=== PATIENT | male | born 1940 | race Caucasian/White ===

== ENCOUNTER → 2017-05-20 | Outpatient (CLI) | payer MEDICARE, OTHER | LOC: SP 08:29 | PROVIDERS: ATTEND Nurse Practitioner Family | DX: L97.212 Non-pressure chronic ulcer of right calf with fat layer exposed (principal) | CPT/HCPCS: 93925; 93970 ==

== ENCOUNTER 2017-05-26 14:13 | Inpatient (IN) | payer MEDICARE, OTHER ==
[2017-05-26] MEDS ORDERED: NORMAL SALINE 1000 ML 1,000 ML IV ONE (15:02)
--- NOTE | 2017-05-26 15:04 | ER Document Report ---
ED General - General Mode of Arrival: Ambulatory Information source: Patient TRAVEL OUTSIDE OF THE [place] IN LAST 30 DAYS: No - HPI Onset: Just prior to arrival Recently seen / treated by doctor: Yes <MALA RODRIGUEZ - Last Filed: 05/26/17 16:36> <BLANCA GRACE - Last Filed: 05/26/17 21:20> - General Stated Complaint: WEAKNESS Time Seen by Provider: 05/26/17 14:55 Notes: Patient is a 76 year old male that presents to the emergency department today with complaints of generalized weakness. Patient was sent in from wound care secondary to his hypotension. Patient states he has new right leg numbness and old right leg numbness. Patient denies any abdominal pain, congestion, UTI symptoms, or fevers. (MALA RODRIGUEZ) - Related Data Allergies/Adverse Reactions: No Known Allergies Allergy (Verified 12/01/13 04:07) Home Medications: Current Home Medications Acetaminophen [Tylenol Extra Strength 500 mg Tablet] 1 tab PO BIDP PRN 05/26/17 [History] Aspirin [Aspirin EC] 81 mg PO DAILY 05/26/17 [History] Atorvastatin Calcium [Lipitor 40 mg Tablet] 40 mg PO QHS 05/26/17 [History] Candesartan Cilexetil [Atacand] 4 mg PO DAILY 05/26/17 [History] Dabigatran Etexilate Mesylate [Pradaxa 150 mg Capsule] 150 mg PO Q12 05/26/17 [ History] Finasteride [Proscar 5 mg Tablet] 5 mg PO DAILY 05/26/17 [History] Fluticasone Propionate [Flonase Nasal [place] 50 Mcg/[place] 16 gm] 1 spray NASL DAILY 05/26/17 [History] Insulin Glargine,Hum.rec.anlog [Lantus Solostar] 25 unit SQ QHS 05/26/17 [ History] Magnesium Oxide [Mag-Ox 400 mg Tablet] 400 mg PO QHS 05/26/17 [History] Metformin HCl [Glucophage] 1,000 mg PO BIDBS 05/26/17 [History] Metoprolol Succinate [Toprol Xl 25 mg Tab.sr] 25 mg PO DAILY 05/26/17 [History] Multivitamin [Tab-A-Ariel] 1 each PO DAILY 05/26/17 [History] Nitroglycerin [Nitrostat] 0.4 mg SL Q5MP PRN 05/26/17 [History] Potassium Chloride [K-Tab ER] 20 meq PO BID 05/26/17 [History] Silver Sulfadiazine [Silvadene 1% Cream 400 gm] 1 applic TP BID 05/26/17 [ History] Tamsulosin HCl [Flomax 0.4 mg Cap.sr] 0.4 mg PO BID 05/26/17 [History] Torsemide [Demadex 20 mg Tablet] 40 mg PO BID 05/26/17 [History] Past Medical History - General Information source: Patient - Social History Smoking Status: Never Smoker Cigarette use (# per day): No Frequency of alcohol use: None Drug Abuse: None Lives with: Family Family History: Reviewed & Not Pertinent, Arthritis, CAD, CVA, DM, Hypertension - Past Medical History Cardiac Medical History: Reports: Hx Atrial Fibrillation, Hx Coronary Artery Disease, Hx Hypercholesterolemia, Hx Hypertension Pulmonary Medical History: Reports: Hx COPD, Hx Sleep Apnea Endocrine Medical History: Reports: Hx Diabetes Mellitus Type 1, Hx Diabetes Mellitus Type 2 Musculoskeltal Medical History: Reports Hx Arthritis Past Surgical History: Reports: Hx Cardiac Catheterization, Hx Cardiac Surgery - stents, Hx Coronary Stent - Immunizations Immunizations up to date: Yes Hx Diphtheria, Pertussis, Tetanus Vaccination: Yes Hx Pneumococcal Vaccination: 02/04/12 <MALA RODRIGUEZ - Last Filed: 05/26/17 16:36> Review of Systems - Review of Systems Constitutional: See HPI, Weakness. denies: Fever EENT: denies: Nose congestion Cardiovascular: No symptoms reported Respiratory: No symptoms reported Gastrointestinal: denies: Abdominal pain Genitourinary: No symptoms reported Male Genitourinary: No symptoms reported Musculoskeletal: No symptoms reported Skin: No symptoms reported Hematologic/Lymphatic: No symptoms reported Neurological/Psychological: See HPI, Numbness - right leg which is new, right arm which is chronic -: Yes All other systems reviewed and negative <MALA RODRIGUEZ - Last Filed: 05/26/17 16:36> Physical Exam - Vital signs Interpretation: Hypotensive - General General appearance: Alert In distress: Mild - HEENT Mucous membranes: Dry - Respiratory Respiratory status: No respiratory distress Chest status: Nontender Breath sounds: Normal - Cardiovascular Rhythm: Regular - Abdominal Inspection: Normal Tenderness: Nontender - Back Back: Normal - Extremities General upper extremity: Normal inspection, Normal ROM General lower extremity: Edema - bl, Normal ROM Calf: Other - Patient with bilateral vascular insufficiency and peripheral skin changes bilaterally. Patient has bandage on right leg. Foot and calf are wet. Open ulcer on the lateral and posterior aspect of the right lower extremity over the calf. Patient does not have any evidence for infection or redness. Good granulation tissue. <BLANCA GRACE - Last Filed: 05/26/17 21:20> - Vital signs Vitals: Temp Pulse Pulse Ox 98.4 F 87 85 L 05/26/17 15:14 05/26/17 15:14 05/26/17 15:14 Course - Laboratory Result Diagrams: 05/26/17 15:30 05/26/17 15:30 <MALA RODRIGUEZ - Last Filed: 05/26/17 16:36> - Laboratory Result Diagrams: 05/26/17 15:30 05/26/17 19:21 - Diagnostic Test Radiology reviewed: Reports reviewed - EKG Interpretation by Pa EKG shows normal: Sinus rhythm Rate: Normal Rhythm: NSR - Consults Guero Time consulted: 17:45 Consulted provider: will see as inpatient <BLANCA GRACE - Last Filed: 05/26/17 21:20> - Re-evaluation Re-evalutation: 05/26/17 Patient is a 76-year-old male who was sent in by the wound clinic because the patient was feeling weak. Patient's initial blood pressure for EMS was 80s over 40s. Patient denies any fever, cough, nausea, vomiting, abdominal pain, dysuria. Patient states that his wound does not look any different than it has. Denies any pain or redness in his leg. Patient was found to be in acute renal failure with hyperkalemia. Patient likely is in the state due to dehydration. Patient has had 200 cc of urine output. No evidence for infection. Patient is responding well to fluids. Discussed with Dr. Jack from nephrology and patient will be admitted to the hospital and fluid resuscitated at this time. Dialysis beds are available, although I do not think the patient will need this at this time. Patient's leg appears well. No evidence for infection. Stable at time of admission to the IM. Of note, documentation that the patient's oxygen saturation was 85% was incorrect. Patient's oxygen saturations were in the high 90s while in the emergency department. (BLANCA GRACE) - Vital Signs Vital signs: Temp Pulse Resp BP Pulse Ox 98.4 F 68 10 L 125/51 L 99 05/26/17 15:14 05/26/17 15:32 05/26/17 19:14 05/26/17 19:14 05/26/17 19:14 - Laboratory Laboratory results interpreted by me: 05/26/17 05/26/17 05/26/17 15:30 15:30 15:30 RBC 2.77 L Hgb 8.6 L Hct 25.6 L RDW 17.2 H PT 18.3 H Sodium 134.1 L Potassium 6.2 H* BUN 70 H Creatinine 2.16 H Est GFR ( Amer) 36 L Est GFR (Non-Af Amer) 30 L Alkaline Phosphatase 215 H Creatine Kinase Albumin 3.2 L Urine Ascorbic Acid 05/26/17 05/26/17 15:30 17:35 RBC Hgb Hct RDW PT Sodium Potassium BUN Creatinine Est GFR ( Amer) Est GFR (Non-Af Amer) Alkaline Phosphatase Creatine Kinase 49 L Albumin Urine Ascorbic Acid 40 H Critical Care Note - Critical Care Note Total time excluding time spent on procedures (mins): 90 - Evaluation and management of hypotension, hyperkalemia, multiple re-evaluations, consultation with nephrology, admission of admission, multiple re-evaluations, counseling of patient <BLANCA GRACE - Last Filed: 05/26/17 21:20> Discharge <MALA RODRIGUEZ - Last Filed: 05/26/17 16:36> - Discharge Admitting Provider: Hospitalist - [facility] Unit Admitted: IMCU <BLANCA GRACE - Last Filed: 05/26/17 21:20> - Discharge Clinical Impression: Weakness, Hyperkalemia Hypotension Qualifiers: Hypotension type: unspecified hypotension type Qualified Code(s): I95.9 - Hypotension, unspecified ARF (acute renal failure) Qualifiers: Acute renal failure type: unspecified Qualified Code(s): N17.9 - Acute kidney failure, unspecified Condition: Stable Disposition: HOME, SELF-CARE Scribe Attestation: 05/26/17 21:19 I personally performed the services described in the documentation, reviewed and edited the documentation which was dictated to the scribe in my presence, and it accurately records my words and actions. (BLANCA GRACE) Scribe Documentation - Scribe Written by Scribe:: J Carlos Quiroz, 05/26/2017 1455 acting as scribe for :: Rodney <MALA RODRIGUEZ - Last Filed: 05/26/17 16:36>
[2017-05-26 15:51] LABS: ABSOLUTE EOSINOPHILS # (AUTO) 0.1 10^3/uL (0.0-0.6); ABSOLUTE LYMPHOCYTES (AUTO) 1.5 10^3/uL (0.5-4.7); ABSOLUTE MONOCYTES (AUTO) 0.9 10^3/uL (0.1-1.4); ABSOLUTE NEUT (AUTO) 7.5 10^3/uL (1.7-8.2); BASOPHILS % (AUTO) 0.2 % (0-2); EOSINOPHILS % (AUTO) 1.1 % (0-6); HEMATOCRIT 25.6 % (37.9-51.0); HEMOGLOBIN 8.6 g/dL (13.5-17.0); HGB HCT DIFFERENCE 0.2; LYMPHOCYTES % (AUTO) 14.7 % (13-45); MEAN CORPUSCULAR HGB CONC 33.6 g/dL (32.0-36.0); MEAN CORPUSCULAR VOLUME 92 fl (80-97); MONOCYTES % (AUTO) 8.9 % (3-13); RED BLOOD COUNT 2.77 10^6/uL (4.35-5.55); RED CELL DISTRIBUTION WIDTH 17.2 % (11.5-14.0); SEGMENTED NEUTROPHILS % (AUTO) 75.1 % (42-78)
[2017-05-26 15:53] LABS: VENOUS BLOOD BASE EXCESS 3.7 mmol/L; VENOUS BLOOD HCO3 30.1 mmol/L (20-32); VENOUS BLOOD PCO2 58.9 mmHg (35-63); VENOUS BLOOD PH 7.33 (7.30-7.42)
[2017-05-26 15:56] LABS: PROTHROMBIN TIME 18.3 SEC (11.4-15.4)
--- NOTE | 2017-05-26 16:08 | RADIOLOGY REPORT (SQ) ---
EXAM DESCRIPTION: CHEST SINGLE VIEW COMPLETED DATE/TIME: 05/26/2017 3:59 pm REASON FOR STUDY: hypotension COMPARISON: 12/01/2013 EXAM PARAMETERS: NUMBER OF VIEWS: One view. TECHNIQUE: Single frontal radiographic view of the chest acquired. RADIATION DOSE: NA LIMITATIONS: None. FINDINGS: LUNGS AND PLEURA: No opacities, masses or pneumothorax. No pleural effusion. MEDIASTINUM AND HILAR STRUCTURES: No masses. Contour normal. HEART AND VASCULAR STRUCTURES: Heart size is borderline. There is no evidence of failure. BONES: No acute findings. HARDWARE: None in the chest. OTHER: No other significant finding. IMPRESSION: Borderline cardiomegaly without CHF. TECHNICAL DOCUMENTATION: JOB ID: [id number]
[2017-05-26 16:14] LABS: ALANINE AMINOTRANSFERASE 43 U/L (21-72); ALBUMIN 3.2 g/dL (3.5-5.0); ALKALINE PHOSPHATASE 215 U/L (38-126); ANION GAP 8 (5-19); ASPARTATE AMINO TRANSFERASE 38 U/L (17-59); BILIRUBIN,DIRECT 0.2 mg/dL (0.0-0.4); BILIRUBIN,TOTAL 0.2 mg/dL (0.2-1.3); BLOOD UREA NITROGEN 70 mg/dL (7-20); CALCIUM 8.6 mg/dL (8.4-10.2); CARBON DIOXIDE 28 mmol/L (22-30); CHLORIDE 98 mmol/L (98-107); CREATININE RESULT 2.16 mg/dL (0.52-1.25); GLUCOSE 95 mg/dL (75-110); SODIUM 134.1 mmol/L (137-145); TOTAL PROTEIN 6.8 g/dL (6.3-8.2)
[2017-05-26 16:19] LABS: POTASSIUM 6.2 mmol/L (3.6-5.0)
[2017-05-26] MEDS ORDERED: DEXTROSE 50%-WATER 25 GM/50 ML DISP.SYRIN IV ONE (16:21)
[2017-05-26] MEDS ORDERED: INSULIN REG, HUMAN 100 UNIT/ML 3 ML VIAL (PYX) IV ONE (16:21)
[2017-05-26 17:55] LABS: APPEARANCE,URINE SLIGHTLY-CLOUDY; BILIRUBIN,URINE NEGATIVE (NEGATIVE); GLUCOSE, URINE NEGATIVE (NEGATIVE); KETONES,URINE NEGATIVE (NEGATIVE); LEUKOCYTE ESTERASE,URINE NEGATIVE (NEGATIVE); NITRITE,URINE NEGATIVE (NEGATIVE); PROTEIN,URINE NEGATIVE (NEGATIVE); URINE SPECIFIC GRAVITY 1.015; UROBILINOGEN,URINE NEGATIVE mg/dL (<2.0)
[2017-05-26] MEDS ORDERED: ONDANSETRON HCL INJ/PF 4 MG/2 ML SDV IV PRN (18:28)
[2017-05-26] MEDS ORDERED: MAGNESIUM HYDROXIDE SUSP 30 ML UDCUP PO PRN (18:28)
[2017-05-26] MEDS ORDERED: INSULIN LISPRO 100 UNIT/ML 3 ML VIAL SUBCUT PRN (18:40)
[2017-05-26] MEDS ORDERED: DEXTROSE 50%-WATER 25 GM/50 ML DISP.SYRIN IV PRN ×2 (18:40)
[2017-05-26] MEDS ORDERED: GLUCAGON,HUMAN RECOMB 1 MG INJ IM PRN (18:40)
[2017-05-26] MEDS ORDERED: DEXTROSE 40% GEL 15 GM TUBE PO PRN ×2 (18:40)
--- NOTE | 2017-05-26 19:03 | PDOC H&P ---
History of Present Illness Admission Date/PCP: 05/26/17 18:21 Patient complains of: legs gave away History of Present Illness: GUME SUGGS is a 76 year old male with multiple medical problems presented to the emergency department after experiencing profound weakness today. He has chronic lower extremity edema. As result, he has skin discoloration on both lower legs as well as ulcerations on his right calf. At his wound clinic appointment today, but was unable to get out of the truck because he was so weak. He did not report dizziness. He did not lose consciousness. He stated that his legs just felt weak. He does not report any change in medications. His appetite has been good. He did not report fevers, chills, nausea, or vomiting. He has not been short of breath. He has not had chest pain. Past Medical History Cardiac Medical History: Reports: Atrial Fibrillation, Coronary Artery Disease, Hyperlipidema, Hypertension Denies: Congestive Heart Failure, Myocardial Infarction Pulmonary Medical History: Reports: Chronic Obstructive Pulmonary Disease (COPD) , Sleep Apnea Denies: Asthma, Tuberculosis Neurological Medical History: Denies: Seizures Endocrine Medical History: Reports: Diabetes Mellitus Type 2, Obesity GI Medical History: Denies: Hepatitis, Hiatal Hernia Musculoskeltal Medical History: Reports: Arthritis Psychiatric Medical History: Denies: Depression Hematology: Denies: Anemia, Sickle Cell Disease Past Surgical History Past Surgical History: Reports: Cardiac Catheterization, Coronary Stent Denies: Pacemaker Social History Lives with: Family Smoking Status: Never Smoker Frequency of Alcohol Use: None Hx Recreational Drug Use: No Hx Prescription Drug Abuse: No - Advance Directive Resuscitation Status: Full Code Family History Family History: Reviewed & Not Pertinent, Arthritis, CAD, CVA, DM, Hypertension Parental Family History Reviewed: Yes Children Family History Reviewed: Yes Sibling(s) Family History Reviewed.: Yes Medication/Allergy Home Medications: Aspirin [Aspirin 81 mg Chewable Tablet] 81 mg PO DAILY 12/01/13 Dabigatran Etexilate Mesylate [Pradaxa 75 Mg Capsule] 75 mg PO BID 12/01/13 Finasteride 5 mg PO DAILY 12/01/13 Furosemide [Lasix 40 mg Tablet] 40 mg PO QAM 12/01/13 Magnesium Oxide [Magnesium] 400 mg PO QHS 12/01/13 Metformin HCl [Glucophage] 500 mg PO BID 12/01/13 Metoprolol Succinate [Toprol Xl] 25 mg PO DAILY 12/01/13 Multivitamin [Multi Vitamin Daily] 1 each PO DAILY 12/01/13 Nitroglycerin 0.4 mg SL DAILY PRN 12/01/13 Potassium Chloride [Klor-Con] 20 meq PO DAILY 12/01/13 Prasugrel Hydrochloride [Effient] 10 mg PO DAILY 12/01/13 Simvastatin 20 mg PO QHS 12/01/13 Tamsulosin HCl [Flomax 0.4 mg Cap.sr] 0.8 mg PO DAILY 12/01/13 Allergies/Adverse Reactions: No Known Allergies Allergy (Verified 12/01/13 04:07) Review of Systems Constitutional: PRESENT: weakness. ABSENT: anorexia, fatigue, fever(s) Cardiovascular: PRESENT: edema. ABSENT: chest pain, dyspnea on exertion, orthropnea, palpitations Physical Exam Vital Signs: Temp Pulse Resp BP Pulse Ox 98.4 F 68 21 H 98/39 L 85 L 05/26/17 15:14 05/26/17 15:32 05/26/17 17:41 05/26/17 15:32 05/26/17 15:14 Neck exam: ABSENT: carotid bruit, JVD Extremities exam: PRESENT: +2 edema - Feet and lower legs bilaterally Skin exam: PRESENT: skin tears - Back of right calf, other - Venous stasis changes Results Laboratory Results: Labs- All tests 24 hr 05/26/17 05/26/17 05/26/17 15:30 15:30 15:30 WBC 10.0 RBC 2.77 L Hgb 8.6 L Hct 25.6 L MCV 92 MCH 31.0 MCHC 33.6 RDW 17.2 H Plt Count 382 Seg Neutrophils % 75.1 Lymphocytes % 14.7 Monocytes % 8.9 Eosinophils % 1.1 Basophils % 0.2 Absolute Neutrophils 7.5 Absolute Lymphocytes 1.5 Absolute Monocytes 0.9 Absolute Eosinophils 0.1 Absolute Basophils 0.0 PT 18.3 H INR 1.43 VBG pH VBG pCO2 VBG HCO3 VBG Base Excess Sodium 134.1 L Potassium 6.2 H* Chloride 98 Carbon Dioxide 28 Anion Gap 8 BUN 70 H Creatinine 2.16 H Est GFR ( Amer) 36 L Est GFR (Non-Af Amer) 30 L Glucose 95 Lactic Acid Calcium 8.6 Total Bilirubin 0.2 Direct Bilirubin 0.2 Indirect Bilirubin Not Reportable Neonat Total Bilirubin Not Reportable AST 38 ALT 43 Alkaline Phosphatase 215 H Creatine Kinase CK-MB (CK-2) Troponin I Total Protein 6.8 Albumin 3.2 L Urine Color Urine Appearance Urine pH Ur Specific [place] Urine Protein Urine Glucose (UA) Urine Ketones Urine Blood Urine Nitrite Urine Bilirubin Urine Urobilinogen Ur Leukocyte Esterase Urine WBC (Auto) Urine RBC (Auto) U Hyaline Cast (Auto) Squamous Epi Cells Auto Urine Ascorbic Acid 05/26/17 05/26/17 05/26/17 15:30 15:30 15:30 WBC RBC Hgb Hct MCV MCH MCHC RDW Plt Count Seg Neutrophils % Lymphocytes % Monocytes % Eosinophils % Basophils % Absolute Neutrophils Absolute Lymphocytes Absolute Monocytes Absolute Eosinophils Absolute Basophils PT INR VBG pH 7.33 VBG pCO2 58.9 VBG HCO3 30.1 VBG Base Excess 3.7 Sodium Potassium Chloride Carbon Dioxide Anion Gap BUN Creatinine Est GFR ( Amer) Est GFR (Non-Af Amer) Glucose Lactic Acid 1.0 Calcium Total Bilirubin Direct Bilirubin Indirect Bilirubin Neonat Total Bilirubin AST ALT Alkaline Phosphatase Creatine Kinase CK-MB (CK-2) Troponin I < 0.012 Total Protein Albumin Urine Color Urine Appearance Urine pH Ur Specific [place] Urine Protein Urine Glucose (UA) Urine Ketones Urine Blood Urine Nitrite Urine Bilirubin Urine Urobilinogen Ur Leukocyte Esterase Urine WBC (Auto) Urine RBC (Auto) U Hyaline Cast (Auto) Squamous Epi Cells Auto Urine Ascorbic Acid 05/26/17 05/26/17 05/26/17 15:30 15:30 17:35 WBC RBC Hgb Hct MCV MCH MCHC RDW Plt Count Seg Neutrophils % Lymphocytes % Monocytes % Eosinophils % Basophils % Absolute Neutrophils Absolute Lymphocytes Absolute Monocytes Absolute Eosinophils Absolute Basophils PT INR VBG pH VBG pCO2 VBG HCO3 VBG Base Excess Sodium Potassium Chloride Carbon Dioxide Anion Gap BUN Creatinine Est GFR ( Amer) Est GFR (Non-Af Amer) Glucose Lactic Acid Calcium Total Bilirubin Direct Bilirubin Indirect Bilirubin Neonat Total Bilirubin AST ALT Alkaline Phosphatase Creatine Kinase 49 L CK-MB (CK-2) 0.95 Troponin I Total Protein Albumin Urine Color YELLOW Urine Appearance SLIGHTLY-CLOUDY Urine pH 5.0 Ur Specific [place] 1.015 Urine Protein NEGATIVE Urine Glucose (UA) NEGATIVE Urine Ketones NEGATIVE Urine Blood NEGATIVE Urine Nitrite NEGATIVE Urine Bilirubin NEGATIVE Urine Urobilinogen NEGATIVE Ur Leukocyte Esterase NEGATIVE Urine WBC (Auto) 1 Urine RBC (Auto) 1 U Hyaline Cast (Auto) 1 Squamous Epi Cells Auto 1 Urine Ascorbic Acid 40 H Impressions: Chest X-Ray 05/26/17 15:02 IMPRESSION: Borderline cardiomegaly without CHF. Assessment & Plan - Diagnosis (1) ARF (acute renal failure) Qualifiers: Acute renal failure type: unspecified Qualified Code(s): N17.9 - Acute kidney failure, unspecified Is this a current diagnosis for this admission?: Yes Plan: Not sure what the etiology is. He appears to be "dry". He is reportedly compliant with his medications. Renal ultrasound has been ordered. He has a Barcenas catheter that was placed in the ED. He is making adequate urine. He already received the bolus of normal saline 1000 cc. I will hold his antihypertensive medications, including Flomax. I will hold Glucophage as well. A BMP ordered for the a.m. (2) Hypotension Qualifiers: Hypotension type: unspecified hypotension type Qualified Code(s): I95.9 - Hypotension, unspecified Is this a current diagnosis for this admission?: Yes Plan: Probably related to medications. He is not acutely ill. He certainly does not present with any symptoms suggestive of an acute illness. He did not report chest pain. He is not short of breath outside of his usual. Continue IV fluids. Hold BP medications. Resume if needed. (3) Hyperkalemia Is this a current diagnosis for this admission?: Yes Plan: Later to acute renal failure. Furthermore, he was taking potassium supplements at home. I will hold those for now. Recheck BMP in a.m. (4) History of chronic atrial fibrillation Is this a current diagnosis for this admission?: Yes Plan: Continue Pradaxa (5) CAD (coronary artery disease), [place] coronary artery Qualifiers: [place] vs. transplanted heart: [place] heart Associated angina: without angina Qualified Code(s): I25.10 - Atherosclerotic heart disease of [place] coronary artery without angina pectoris Is this a current diagnosis for this admission?: Yes Plan: Stable. Continue statin, aspirin, and Effient. (6) BPH (benign prostatic hyperplasia) Qualifiers: Lower urinary tract symptom presence: symptoms absent Qualified Code(s): N40.0 - Benign prostatic hyperplasia without lower urinary tract symptoms Is this a current diagnosis for this admission?: Yes Plan: Continue finasteride. Hold Flomax while he is hypotensive. (7) Diabetes mellitus Qualifiers: Diabetes mellitus type: type 2 Diabetes mellitus complication status: without complication Diabetes mellitus dedicated intermodal truck driver insulin use: without dedicated intermodal truck driver use Qualified Code(s): E11.9 - Type 2 diabetes mellitus without complications Is this a current diagnosis for this admission?: Yes Plan: Hold Glucophage for now. I will use insulin sliding scale if needed. (8) Leg wound, right Qualifiers: Encounter type: initial encounter Qualified Code(s): S81.801A - Unspecified open wound, right lower leg, initial encounter Is this a current diagnosis for this admission?: Yes Plan: We will with saline and cover with Silvadene cream twice daily. (9) Hypoxia Is this a current diagnosis for this admission?: Yes Plan: Recently, he states that he uses oxygen at home only on an as-needed basis. I will order 2 L continuous for now. - Time Time Spent: 50 to 70 Minutes Anticipated discharge: Home Within: within 36 hours - Inpatient Certification Based on my medical assessment, after consideration of the patient's comorbidities, presenting symptoms, or acuity I expect that the services needed warrant INPATIENT care.: Yes I certify that my determination is in accordance with my understanding of Medicare's requirements for reasonable and necessary INPATIENT services [42 CFR 412.3e].: Yes Medical Necessity: Need For IV Fluids
--- NOTE | 2017-05-26 19:51 | RADIOLOGY REPORT (SQ) ---
EXAM DESCRIPTION: U/S RETROPERITON (RENAL/AORTA) COMPLETED DATE/TIME: 05/26/2017 7:35 pm REASON FOR STUDY: evaluate for obstruction COMPARISON: None. TECHNIQUE: Dynamic and static grayscale images acquired of the kidneys and bladder and recorded on P ACS. Additional selected color Doppler and spectral images recorded. LIMITATIONS: None. FINDINGS: RIGHT KIDNEY: The right kidney measures 10.1 cm in length. The right collecting system is dilated. There is thinning of the cortex. A large right renal pelvis was noted on CT done in November 2013. This may be chronic. Echogenicity is normal. LEFT KIDNEY: The left kidney measures 12.5 cm in length. No hydronephrosis. Echogenicity is normal . BLADDER: No masses. OTHER FINDINGS: No other significant finding. IMPRESSION: Dilated right collecting system. Similar findings were present on a CT done in November of 2013. This may be chronic for this patient. TECHNICAL DOCUMENTATION: JOB ID: [id number] [employer]- All Rights Reserved
[2017-05-26 20:01] LABS: ANION GAP 8 (5-19); BLOOD UREA NITROGEN 66 mg/dL (7-20); CALCIUM 8.6 mg/dL (8.4-10.2); CARBON DIOXIDE 26 mmol/L (22-30); CHLORIDE 101 mmol/L (98-107); GLUCOSE 102 mg/dL (75-110); POTASSIUM 5.3 mmol/L (3.6-5.0); SODIUM 135.3 mmol/L (137-145)
--- NOTE | 2017-05-26 20:13 | EKG REPORT ---
SEVERITY:- ABNORMAL ECG - SINUS RHYTHM NONSPECIFIC INTRAVENTRICULAR CONDUCTION DELAY : Confirmed by: Cynthia Osborne 26-May-2017 20:11:53
[2017-05-26] MEDS ORDERED: SIMVASTATIN 10 MG TABLET PO SCH (22:00)
[2017-05-26] MEDS ORDERED: (PENDING PHARMACY ID) (Simvastatin [Simvastatin] 20 MG) PO SCH (22:00)
[2017-05-26] MEDS: ATORVASTATIN CALCIUM 40 MG TABLET PO SCH (22:14)
[2017-05-26] MEDS: DABIGATRAN ETEXILATE 150 MG CAPSULE PO SCH (22:15)
[2017-05-26] MEDS: NORMAL SALINE 1000 ML 1,000 ML IV PRN (22:16)
[2017-05-27] MEDS: ACETAMINOPHEN 325 MG TABLET PO PRN ×3 (00:44→12:58)
[2017-05-27 05:52] LABS: HEMATOCRIT 26.6 % (37.9-51.0); HEMOGLOBIN 8.8 g/dL (13.5-17.0); HGB HCT DIFFERENCE -0.2; MEAN CORPUSCULAR HEMOGLOBIN 30.2 pg (27.0-33.4); MEAN CORPUSCULAR HGB CONC 32.8 g/dL (32.0-36.0); MEAN CORPUSCULAR VOLUME 92 fl (80-97); WHITE BLOOD COUNT 9.4 10^3/uL (4.0-10.5)
[2017-05-27 06:11] LABS: ANION GAP 8 (5-19); BLOOD UREA NITROGEN 54 mg/dL (7-20); CALCIUM 8.3 mg/dL (8.4-10.2); CARBON DIOXIDE 25 mmol/L (22-30); CHLORIDE 103 mmol/L (98-107); CREATININE RESULT 1.21 mg/dL (0.52-1.25); GLUCOSE 102 mg/dL (75-110); POTASSIUM 4.9 mmol/L (3.6-5.0); SODIUM 135.6 mmol/L (137-145)
[2017-05-27] MEDS ORDERED: SILVER SULFADIAZINE 1% CREAM 400 GM ONE (06:50)
[2017-05-27] MEDS ORDERED: (PENDING PHARMACY ID) (Acetaminophen [Tylenol Extra Strength 500 Mg Tablet] 1 TAB) PO PRN (08:26)
--- NOTE | 2017-05-27 08:44 | PDOC PROGRESS REPORT ---
Subjective Progress Note for:: 05/27/17 Subjective:: Today, his main concern is discomfort laying in the bed. He is concerned also that he may not be able to walk. He really wants to go home, but is concerned that he may not have the strength to stand/and/or ambulate. He had no problems overnight. Physical Exam Vital Signs: Temp Pulse Resp BP Pulse Ox 97.9 F 69 19 124/51 L 92 05/27/17 07:22 05/27/17 07:22 05/27/17 07:22 05/27/17 07:22 05/27/17 07:22 Intake & Output 05/26/17 05/27/17 05/28/17 06:59 06:59 06:59 Intake Total 1367 Output Total 1800 Balance -433 Weight 131 kg General appearance: PRESENT: no acute distress, cooperative, morbidly obese Head exam: PRESENT: atraumatic, normocephalic Eye exam: PRESENT: EOMI, PERRLA Respiratory exam: PRESENT: clear to auscultation pam. ABSENT: rales, rhonchi, wheezes Cardiovascular exam: PRESENT: RRR. ABSENT: diastolic murmur, rubs, systolic murmur GI/Abdominal exam: PRESENT: normal bowel sounds, soft. ABSENT: distended, guarding, mass, organolmegaly, rebound, tenderness Rectal exam: PRESENT: deferred Extremities exam: PRESENT: +2 edema - Bilateral lower extremities Neurological exam: PRESENT: alert, awake, oriented to person, oriented to place , oriented to time, oriented to situation, CN II-XII grossly intact. ABSENT: motor sensory deficit Psychiatric exam: PRESENT: appropriate affect, normal mood. ABSENT: homicidal ideation, suicidal ideation Skin exam: PRESENT: other - Hyperpigmented skin from proximal shins to ankles/ feet. Ulcerated skin posterior right calf Results Laboratory Results: 05/27/17 05:02 05/27/17 05:02 05/26/17 05/27/17 05/27/17 19:21 05:02 05:02 WBC 9.4 RBC 2.90 L Hgb 8.8 L Hct 26.6 L MCV 92 MCH 30.2 MCHC 32.8 RDW 17.0 H Plt Count 361 Sodium 135.3 L 135.6 L Potassium 5.3 H 4.9 Chloride 101 103 Carbon Dioxide 26 25 Anion Gap 8 8 BUN 66 H 54 H Creatinine 1.60 H 1.21 Est GFR ( Amer) 51 L > 60 Est GFR (Non-Af Amer) 42 L 58 L Glucose 102 102 Calcium 8.6 8.3 L Impressions: Chest X-Ray 05/26/17 15:02 IMPRESSION: Borderline cardiomegaly without CHF. Renal Ultrasound 05/26/17 17:40 IMPRESSION: Dilated right collecting system. Similar findings were present on a CT done in November of 2013. This may be chronic for this patient. Assessment & Plan - Diagnosis (1) ARF (acute renal failure) Qualifiers: Acute renal failure type: unspecified Qualified Code(s): N17.9 - Acute kidney failure, unspecified Is this a current diagnosis for this admission?: Yes Plan: Yesterday I was not sure what the etiology was. He appeared to be "dry". After his medications were reconciled, I found out that he was taking torsemide 40 mg twice a day. He has been taking this for 6 months. He was also taking Atacand. Renal ultrasound showed no acute changes. 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 He has a Barcenas catheter that was placed in the ED. He is making adequate urine. This morning, his creatinine is normal. His blood pressure has also improved. I will continue holding the diuretic and blood pressure medications until his pressure is high enough to tolerate it. (2) Hypotension Qualifiers: Hypotension type: unspecified hypotension type Qualified Code(s): I95.9 - Hypotension, unspecified Is this a current diagnosis for this admission?: Yes Plan: Probably related to medications. Blood pressure has improved today. Continue IV fluids. Hold BP medications. Resume when/if needed. (3) Hyperkalemia Is this a current diagnosis for this admission?: Yes Plan: Resolved (4) History of chronic atrial fibrillation Is this a current diagnosis for this admission?: Yes Plan: Continue Pradaxa (5) CAD (coronary artery disease), [place] coronary artery Qualifiers: [place] vs. transplanted heart: [place] heart Associated angina: without angina Qualified Code(s): I25.10 - Atherosclerotic heart disease of [place] coronary artery without angina pectoris Is this a current diagnosis for this admission?: Yes Plan: Stable. Continue statin, aspirin, and Effient. (6) BPH (benign prostatic hyperplasia) Qualifiers: Lower urinary tract symptom presence: symptoms absent Qualified Code(s): N40.0 - Benign prostatic hyperplasia without lower urinary tract symptoms Is this a current diagnosis for this admission?: Yes Plan: Continue finasteride. Hold Flomax while he is hypotensive. (7) Diabetes mellitus Qualifiers: Diabetes mellitus type: type 2 Diabetes mellitus complication status: without complication Diabetes mellitus skilled nursing insulin use: without intermediate designer use Qualified Code(s): E11.9 - Type 2 diabetes mellitus without complications Is this a current diagnosis for this admission?: Yes Plan: Admission medication reconciliation demonstrated that he was also taking Lantus. I can start him back on Glucophage now his renal failure has resolved. Because his blood sugars are considerably normal, I will still use the sliding scale and not restart long-acting insulin just yet. (8) Leg wound, right Qualifiers: Encounter type: initial encounter Qualified Code(s): S81.801A - Unspecified open wound, right lower leg, initial encounter Is this a current diagnosis for this admission?: Yes Plan: We will with saline and cover with Silvadene cream twice daily. (9) Hypoxia Is this a current diagnosis for this admission?: Yes Plan: Recently, he states that he uses oxygen at home only on an as-needed basis. Continue 2 L continuous for now. - Time Time Spent with patient: 25-34 minutes Anticipated discharge: Home with Homehealth Within: within 24 hours - Inpatient Certification Based on my medical assessment, after consideration of the patient's comorbidities, presenting symptoms, or acuity I expect that the services needed warrant INPATIENT care.: Yes I certify that my determination is in accordance with my understanding of Medicare's requirements for reasonable and necessary INPATIENT services [42 CFR 412.3e].: Yes Medical Necessity: Need For IV Fluids
[2017-05-27] MEDS: METOPROLOL SUCCINATE 25 MG TAB.SR.24H PO SCH (09:44)
[2017-05-27] MEDS: MULTIVITAMIN TABLET PO SCH (09:45)
[2017-05-27] MEDS: FINASTERIDE 5 MG TABLET PO SCH (09:45)
[2017-05-27] MEDS: TAMSULOSIN HCL 0.4 MG CAP.SR.24H PO SCH ×2 (09:45→17:29)
[2017-05-27] MEDS: DABIGATRAN ETEXILATE 150 MG CAPSULE PO SCH ×2 (09:46→21:18)
[2017-05-27] MEDS: ASPIRIN 81 MG TABLET, CHEWABLE PO SCH (09:46)
[2017-05-27] MEDS: NITROGLYCERIN 0.4 MG/TAB 25 TAB/BOTTLE SL PRN (09:49)
[2017-05-27] MEDS ORDERED: DABIGATRAN ETEXILATE 75 MG CAPSULE PO SCH (10:00)
[2017-05-27] MEDS: FLUTICASONE NASAL SPRAY 50 MCG/SPRY 120 SPRAY/16 GM NASL SCH (10:15)
--- NOTE | 2017-05-27 11:13 | Physician Advisory Note ---
Physician Advisor ProgressNote .: [facility] I have reviewed the medical record for this patient. Physician Advisor Statement: Please consider documenting, if you agree: 1. "obesity with BMI 43.9, associated with " [FREDY, hypoxemia, need for bariatric-rated DME, add'l nursing support for transfers/turning,...?] 2. "possible ATN causing ARF, due to systemic hypotension" 3. ? - "chronic hypoxemic respiratory failure, w/underlying COPD & FREDY, using O2 __L at home, w/O2 sat 85% RA initially in ED" [?also w/obesity hypoventilation syndrome?] 4. Status: Medicare pt appropriately came in as Obs, but now appropriate to change to Inpatient status given nicely documented details of need for continued hospital care/monitoring. Thanks! CK
[2017-05-27] MEDS: METFORMIN HCL 500 MG TABLET PO SCH (17:29)
[2017-05-27] MEDS: NORMAL SALINE 1000 ML 1,000 ML IV PRN (21:17)
[2017-05-27] MEDS: ATORVASTATIN CALCIUM 40 MG TABLET PO SCH (21:17)
[2017-05-28] MEDS: NORMAL SALINE 1000 ML 1,000 ML IV PRN (05:40)
[2017-05-28] MEDS: METFORMIN HCL 500 MG TABLET PO SCH ×2 (07:37→17:21)
[2017-05-28] MEDS: FINASTERIDE 5 MG TABLET PO SCH (09:29)
[2017-05-28] MEDS: METOPROLOL SUCCINATE 25 MG TAB.SR.24H PO SCH (09:29)
[2017-05-28] MEDS: DABIGATRAN ETEXILATE 150 MG CAPSULE PO SCH ×2 (09:29→22:12)
[2017-05-28] MEDS: TAMSULOSIN HCL 0.4 MG CAP.SR.24H PO SCH ×2 (09:30→17:21)
[2017-05-28] MEDS: FLUTICASONE NASAL SPRAY 50 MCG/SPRY 120 SPRAY/16 GM NASL SCH (09:30)
[2017-05-28] MEDS: MULTIVITAMIN TABLET PO SCH (09:30)
[2017-05-28] MEDS: ASPIRIN 81 MG TABLET, CHEWABLE PO SCH (09:30)
[2017-05-28] MEDS: ACETAMINOPHEN 325 MG TABLET PO PRN (09:30)
[2017-05-28] MEDS ORDERED: ONDANSETRON HCL INJ/PF 4 MG/2 ML SDV IV PRN (10:00)
[2017-05-28] MEDS ORDERED: MAGNESIUM HYDROXIDE SUSP 30 ML UDCUP PO PRN (10:00)
--- NOTE | 2017-05-28 10:11 | PDOC PROGRESS REPORT ---
Subjective Progress Note for:: 05/28/17 Subjective:: No problems overnight. He is still concerned also that he may not be strong enough for home. He is feeling as if he may be too much for his family to care for. Physical Exam Vital Signs: Temp Pulse Resp BP Pulse Ox 97.6 F 78 20 124/46 L 98 05/28/17 07:50 05/28/17 07:50 05/28/17 07:50 05/28/17 07:50 05/28/17 07:50 Intake & Output 05/27/17 05/28/17 05/29/17 06:59 06:59 06:59 Intake Total 3222 Output Total 1700 Balance 1522 Weight 131 kg General appearance: PRESENT: no acute distress, morbidly obese Head exam: PRESENT: atraumatic, normocephalic Neck exam: ABSENT: JVD Respiratory exam: PRESENT: clear to auscultation pam. ABSENT: rales, rhonchi, wheezes Cardiovascular exam: PRESENT: RRR. ABSENT: diastolic murmur, rubs, systolic murmur GI/Abdominal exam: PRESENT: normal bowel sounds, soft. ABSENT: distended, guarding, mass, organolmegaly, rebound, tenderness Extremities exam: PRESENT: +2 edema Neurological exam: PRESENT: alert, awake, oriented to person, oriented to place , oriented to time, oriented to situation, CN II-XII grossly intact. ABSENT: motor sensory deficit Skin exam: PRESENT: other - hyperpigmented calves. ulceration on posterior right calf Results Laboratory Results: Labs- Entire Visit 05/26/17 05/26/17 05/26/17 15:30 15:30 15:30 WBC 10.0 RBC 2.77 L Hgb 8.6 L Hct 25.6 L MCV 92 MCH 31.0 MCHC 33.6 RDW 17.2 H Plt Count 382 Seg Neutrophils % 75.1 Lymphocytes % 14.7 Monocytes % 8.9 Eosinophils % 1.1 Basophils % 0.2 Absolute Neutrophils 7.5 Absolute Lymphocytes 1.5 Absolute Monocytes 0.9 Absolute Eosinophils 0.1 Absolute Basophils 0.0 PT 18.3 H INR 1.43 VBG pH VBG pCO2 VBG HCO3 VBG Base Excess Sodium 134.1 L Potassium 6.2 H* Chloride 98 Carbon Dioxide 28 Anion Gap 8 BUN 70 H Creatinine 2.16 H Est GFR ( Amer) 36 L Est GFR (Non-Af Amer) 30 L Glucose 95 POC Glucose Lactic Acid Calcium 8.6 Total Bilirubin 0.2 Direct Bilirubin 0.2 Indirect Bilirubin Not Reportable Neonat Total Bilirubin Not Reportable AST 38 ALT 43 Alkaline Phosphatase 215 H Creatine Kinase CK-MB (CK-2) Troponin I Total Protein 6.8 Albumin 3.2 L Urine Color Urine Appearance Urine pH Ur Specific [place] Urine Protein Urine Glucose (UA) Urine Ketones Urine Blood Urine Nitrite Urine Bilirubin Urine Urobilinogen Ur Leukocyte Esterase Urine WBC (Auto) Urine RBC (Auto) U Hyaline Cast (Auto) Squamous Epi Cells Auto Urine Ascorbic Acid Stool for White Cells 05/26/17 05/26/17 05/26/17 15:30 15:30 15:30 WBC RBC Hgb Hct MCV MCH MCHC RDW Plt Count Seg Neutrophils % Lymphocytes % Monocytes % Eosinophils % Basophils % Absolute Neutrophils Absolute Lymphocytes Absolute Monocytes Absolute Eosinophils Absolute Basophils PT INR VBG pH 7.33 VBG pCO2 58.9 VBG HCO3 30.1 VBG Base Excess 3.7 Sodium Potassium Chloride Carbon Dioxide Anion Gap BUN Creatinine Est GFR ( Amer) Est GFR (Non-Af Amer) Glucose POC Glucose Lactic Acid 1.0 Calcium Total Bilirubin Direct Bilirubin Indirect Bilirubin Neonat Total Bilirubin AST ALT Alkaline Phosphatase Creatine Kinase CK-MB (CK-2) Troponin I < 0.012 Total Protein Albumin Urine Color Urine Appearance Urine pH Ur Specific [place] Urine Protein Urine Glucose (UA) Urine Ketones Urine Blood Urine Nitrite Urine Bilirubin Urine Urobilinogen Ur Leukocyte Esterase Urine WBC (Auto) Urine RBC (Auto) U Hyaline Cast (Auto) Squamous Epi Cells Auto Urine Ascorbic Acid Stool for White Cells 05/26/17 05/26/17 05/26/17 15:30 15:30 17:35 WBC RBC Hgb Hct MCV MCH MCHC RDW Plt Count Seg Neutrophils % Lymphocytes % Monocytes % Eosinophils % Basophils % Absolute Neutrophils Absolute Lymphocytes Absolute Monocytes Absolute Eosinophils Absolute Basophils PT INR VBG pH VBG pCO2 VBG HCO3 VBG Base Excess Sodium Potassium Chloride Carbon Dioxide Anion Gap BUN Creatinine Est GFR ( Amer) Est GFR (Non-Af Amer) Glucose POC Glucose Lactic Acid Calcium Total Bilirubin Direct Bilirubin Indirect Bilirubin Neonat Total Bilirubin AST ALT Alkaline Phosphatase Creatine Kinase 49 L CK-MB (CK-2) 0.95 Troponin I Total Protein Albumin Urine Color YELLOW Urine Appearance SLIGHTLY-CLOUDY Urine pH 5.0 Ur Specific [place] 1.015 Urine Protein NEGATIVE Urine Glucose (UA) NEGATIVE Urine Ketones NEGATIVE Urine Blood NEGATIVE Urine Nitrite NEGATIVE Urine Bilirubin NEGATIVE Urine Urobilinogen NEGATIVE Ur Leukocyte Esterase NEGATIVE Urine WBC (Auto) 1 Urine RBC (Auto) 1 U Hyaline Cast (Auto) 1 Squamous Epi Cells Auto 1 Urine Ascorbic Acid 40 H Stool for White Cells 05/26/17 05/26/17 05/27/17 19:21 21:56 05:02 WBC 9.4 RBC 2.90 L Hgb 8.8 L Hct 26.6 L MCV 92 MCH 30.2 MCHC 32.8 RDW 17.0 H Plt Count 361 Seg Neutrophils % Lymphocytes % Monocytes % Eosinophils % Basophils % Absolute Neutrophils Absolute Lymphocytes Absolute Monocytes Absolute Eosinophils Absolute Basophils PT INR VBG pH VBG pCO2 VBG HCO3 VBG Base Excess Sodium 135.3 L Potassium 5.3 H Chloride 101 Carbon Dioxide 26 Anion Gap 8 BUN 66 H Creatinine 1.60 H Est GFR ( Amer) 51 L Est GFR (Non-Af Amer) 42 L Glucose 102 POC Glucose 126 H Lactic Acid Calcium 8.6 Total Bilirubin Direct Bilirubin Indirect Bilirubin Neonat Total Bilirubin AST ALT Alkaline Phosphatase Creatine Kinase CK-MB (CK-2) Troponin I Total Protein Albumin Urine Color Urine Appearance Urine pH Ur Specific [place] Urine Protein Urine Glucose (UA) Urine Ketones Urine Blood Urine Nitrite Urine Bilirubin Urine Urobilinogen Ur Leukocyte Esterase Urine WBC (Auto) Urine RBC (Auto) U Hyaline Cast (Auto) Squamous Epi Cells Auto Urine Ascorbic Acid Stool for White Cells 05/27/17 05/27/17 05/27/17 05:02 06:19 10:27 WBC RBC Hgb Hct MCV MCH MCHC RDW Plt Count Seg Neutrophils % Lymphocytes % Monocytes % Eosinophils % Basophils % Absolute Neutrophils Absolute Lymphocytes Absolute Monocytes Absolute Eosinophils Absolute Basophils PT INR VBG pH VBG pCO2 VBG HCO3 VBG Base Excess Sodium 135.6 L Potassium 4.9 Chloride 103 Carbon Dioxide 25 Anion Gap 8 BUN 54 H Creatinine 1.21 Est GFR ( Amer) > 60 Est GFR (Non-Af Amer) 58 L Glucose 102 POC Glucose 102 Lactic Acid Calcium 8.3 L Total Bilirubin Direct Bilirubin Indirect Bilirubin Neonat Total Bilirubin AST ALT Alkaline Phosphatase Creatine Kinase CK-MB (CK-2) Troponin I Total Protein Albumin Urine Color Urine Appearance Urine pH Ur Specific [place] Urine Protein Urine Glucose (UA) Urine Ketones Urine Blood Urine Nitrite Urine Bilirubin Urine Urobilinogen Ur Leukocyte Esterase Urine WBC (Auto) Urine RBC (Auto) U Hyaline Cast (Auto) Squamous Epi Cells Auto Urine Ascorbic Acid Stool for White Cells NO WBCs SEEN 05/27/17 05/27/17 05/27/17 12:00 15:37 22:16 WBC RBC Hgb Hct MCV MCH MCHC RDW Plt Count Seg Neutrophils % Lymphocytes % Monocytes % Eosinophils % Basophils % Absolute Neutrophils Absolute Lymphocytes Absolute Monocytes Absolute Eosinophils Absolute Basophils PT INR VBG pH VBG pCO2 VBG HCO3 VBG Base Excess Sodium Potassium Chloride Carbon Dioxide Anion Gap BUN Creatinine Est GFR ( Amer) Est GFR (Non-Af Amer) Glucose POC Glucose 125 H 119 H 105 Lactic Acid Calcium Total Bilirubin Direct Bilirubin Indirect Bilirubin Neonat Total Bilirubin AST ALT Alkaline Phosphatase Creatine Kinase CK-MB (CK-2) Troponin I Total Protein Albumin Urine Color Urine Appearance Urine pH Ur Specific [place] Urine Protein Urine Glucose (UA) Urine Ketones Urine Blood Urine Nitrite Urine Bilirubin Urine Urobilinogen Ur Leukocyte Esterase Urine WBC (Auto) Urine RBC (Auto) U Hyaline Cast (Auto) Squamous Epi Cells Auto Urine Ascorbic Acid Stool for White Cells 05/28/17 05:49 WBC RBC Hgb Hct MCV MCH MCHC RDW Plt Count Seg Neutrophils % Lymphocytes % Monocytes % Eosinophils % Basophils % Absolute Neutrophils Absolute Lymphocytes Absolute Monocytes Absolute Eosinophils Absolute Basophils PT INR VBG pH VBG pCO2 VBG HCO3 VBG Base Excess Sodium Potassium Chloride Carbon Dioxide Anion Gap BUN Creatinine Est GFR ( Amer) Est GFR (Non-Af Amer) Glucose POC Glucose 92 Lactic Acid Calcium Total Bilirubin Direct Bilirubin Indirect Bilirubin Neonat Total Bilirubin AST ALT Alkaline Phosphatase Creatine Kinase CK-MB (CK-2) Troponin I Total Protein Albumin Urine Color Urine Appearance Urine pH Ur Specific [place] Urine Protein Urine Glucose (UA) Urine Ketones Urine Blood Urine Nitrite Urine Bilirubin Urine Urobilinogen Ur Leukocyte Esterase Urine WBC (Auto) Urine RBC (Auto) U Hyaline Cast (Auto) Squamous Epi Cells Auto Urine Ascorbic Acid Stool for White Cells Impressions: Chest X-Ray 05/26/17 15:02 IMPRESSION: Borderline cardiomegaly without CHF. Renal Ultrasound 05/26/17 17:40 IMPRESSION: Dilated right collecting system. Similar findings were present on a CT done in November of 2013. This may be chronic for this patient. Assessment & Plan - Diagnosis (1) ARF (acute renal failure) Qualifiers: Acute renal failure type: with acute tubular necrosis Qualified Code(s): N17.0 - Acute kidney failure with tubular necrosis Is this a current diagnosis for this admission?: Yes Plan: On admission, I was not sure what the etiology was. He appeared to be "dry". After his medications were reconciled, I found out that he was taking torsemide 40 mg twice a day. He has been taking this for 6 months. He was also taking Atacand. Renal ultrasound showed no acute changes. 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 He had a Barcenas catheter that was placed in the ED. He has been making adequate urine. His creatinine is normal. His blood pressure has also improved. I will continue holding the diuretic and blood pressure medications until his pressure is high enough to tolerate it. Remove Barcenas today. stop IVFs (2) Hypotension Qualifiers: Hypotension type: unspecified hypotension type Qualified Code(s): I95.9 - Hypotension, unspecified Is this a current diagnosis for this admission?: Yes Plan: Probably related to medications. Blood pressure has improved. Discontinue IV fluids. Hold BP medications. Resume when/if needed. (3) Hyperkalemia Is this a current diagnosis for this admission?: Yes Plan: Resolved (4) History of chronic atrial fibrillation Is this a current diagnosis for this admission?: Yes Plan: Continue Pradaxa (5) CAD (coronary artery disease), [place] coronary artery Qualifiers: [place] vs. transplanted heart: [place] heart Associated angina: without angina Qualified Code(s): I25.10 - Atherosclerotic heart disease of [place] coronary artery without angina pectoris Is this a current diagnosis for this admission?: Yes Plan: Stable. Continue statin, aspirin, and Effient. (6) BPH (benign prostatic hyperplasia) Qualifiers: Lower urinary tract symptom presence: symptoms absent Qualified Code(s): N40.0 - Benign prostatic hyperplasia without lower urinary tract symptoms Is this a current diagnosis for this admission?: Yes Plan: Continue finasteride. Resume Flomax. (7) Diabetes mellitus Qualifiers: Diabetes mellitus type: type 2 Diabetes mellitus complication status: without complication Diabetes mellitus emt intermediate insulin use: without detention use Qualified Code(s): E11.9 - Type 2 diabetes mellitus without complications Is this a current diagnosis for this admission?: Yes Plan: Blood sugars are well controlled. Continue metformin. Continue sliding scale for insulin. (8) Leg wound, right Qualifiers: Encounter type: initial encounter Qualified Code(s): S81.801A - Unspecified open wound, right lower leg, initial encounter Is this a current diagnosis for this admission?: Yes Plan: We will rinse with saline and cover with Silvadene cream twice daily. (9) Hypoxia Is this a current diagnosis for this admission?: Yes Plan: Recently, he states that he uses oxygen at home only on an as-needed basis. Continue 2 L continuous for now. (10) Chronic respiratory failure Qualifiers: Respiratory failure complication: hypoxia Qualified Code(s): J96.11 - Chronic respiratory failure with hypoxia Is this a current diagnosis for this admission?: Yes Plan: continue Oxygen. (11) Obesity Qualifiers: Obesity type: unspecified obesity type Obesity classification: adult class 3 (BMI >= 40) Body mass index: BMI 40.0-44.9 Is this a current diagnosis for this admission?: Yes Plan: He needs bariatric-rated DME, and add'l nursing support for transfers/turning. His weight plus deconditioning limits his ability to live independently. He feels that his cannot care for him. I have asked the mechanical planner to see him, discuss possibility of rehab. - Time Time Spent with patient: 15-24 minutes Medications reviewed and adjusted accordingly: Yes Anticipated discharge: SNF Within: within 24 hours
[2017-05-28] MEDS: NITROGLYCERIN 0.4 MG/TAB 25 TAB/BOTTLE SL PRN (13:08)
[2017-05-28] MEDS: ATORVASTATIN CALCIUM 40 MG TABLET PO SCH (22:11)
[2017-05-29] MEDS: ACETAMINOPHEN 325 MG TABLET PO PRN ×2 (03:17→17:57)
[2017-05-29] MEDS: METFORMIN HCL 500 MG TABLET PO SCH ×2 (09:11→15:17)
[2017-05-29] MEDS: FINASTERIDE 5 MG TABLET PO SCH (09:12)
[2017-05-29] MEDS: ASPIRIN 81 MG TABLET, CHEWABLE PO SCH (09:12)
[2017-05-29] MEDS: TAMSULOSIN HCL 0.4 MG CAP.SR.24H PO SCH ×2 (09:13→17:59)
[2017-05-29] MEDS: MULTIVITAMIN TABLET PO SCH (09:14)
[2017-05-29] MEDS: FLUTICASONE NASAL SPRAY 50 MCG/SPRY 120 SPRAY/16 GM NASL SCH (09:17)
[2017-05-29] MEDS: DABIGATRAN ETEXILATE 150 MG CAPSULE PO SCH ×2 (09:30→21:30)
[2017-05-29] MEDS: NITROGLYCERIN 0.4 MG/TAB 25 TAB/BOTTLE SL PRN (09:37)
[2017-05-29] MEDS: METOPROLOL SUCCINATE 25 MG TAB.SR.24H PO SCH (09:37)
[2017-05-29] MEDS ORDERED: NITROGLYCERIN 0.4 MG/TAB 25 TAB/BOTTLE SL PRN (09:39)
[2017-05-29] MEDS ORDERED: POLYETHYLENE GLYCOL 3350 POWDER 17 GM/1 PACKET PO ONE (12:00)
--- NOTE | 2017-05-29 13:12 | PDOC PROGRESS REPORT ---
Subjective Progress Note for:: 05/29/17 Subjective:: No problems overnight. land use planner has arranged transfer to [place] for ThursdayJun 01. Physical Exam Vital Signs: Temp Pulse Resp BP Pulse Ox 98.4 F 64 18 111/47 L 96 05/29/17 11:07 05/29/17 11:07 05/29/17 11:07 05/29/17 11:07 05/29/17 11:07 Intake & Output 05/28/17 05/29/17 05/30/17 06:59 06:59 06:59 Intake Total 3222 1915 360 Output Total 1700 825 Balance 1522 1090 360 Weight 131 kg 132.4 kg General appearance: PRESENT: no acute distress, well-developed, well-nourished Head exam: PRESENT: atraumatic, normocephalic Respiratory exam: PRESENT: clear to auscultation pam. ABSENT: rales, rhonchi, wheezes Cardiovascular exam: PRESENT: RRR. ABSENT: diastolic murmur, rubs, systolic murmur GI/Abdominal exam: PRESENT: normal bowel sounds, soft. ABSENT: distended, guarding, mass, organolmegaly, rebound, tenderness Extremities exam: PRESENT: +2 edema Neurological exam: PRESENT: alert, awake, oriented to person, oriented to place , oriented to time, oriented to situation, CN II-XII grossly intact. ABSENT: motor sensory deficit Skin exam: PRESENT: other - Hyperpigmented lower legs with ulcerations on the right posterior calf Results Impressions: Chest X-Ray 05/26/17 15:02 IMPRESSION: Borderline cardiomegaly without CHF. Renal Ultrasound 05/26/17 17:40 IMPRESSION: Dilated right collecting system. Similar findings were present on a CT done in November of 2013. This may be chronic for this patient. Assessment & Plan - Diagnosis (1) ARF (acute renal failure) Qualifiers: Acute renal failure type: with acute tubular necrosis Qualified Code(s): N17.0 - Acute kidney failure with tubular necrosis Is this a current diagnosis for this admission?: Yes Plan: On admission, I was not sure what the etiology was. He appeared to be "dry". After his medications were reconciled, I found out that he was taking torsemide 40 mg twice a day. He has been taking this for 6 months. He was also taking Atacand. Renal ultrasound showed no acute changes. 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 He had a Barcenas catheter that was placed in the ED. He has been making adequate urine. His creatinine normalized. His blood pressure has also improved. Diuretic and blood pressure medications are still on hold until his pressure is high enough to justify using them. Removed Barcenas and stopped IVFs 05/28/17 (2) Hypotension Qualifiers: Hypotension type: unspecified hypotension type Qualified Code(s): I95.9 - Hypotension, unspecified Is this a current diagnosis for this admission?: Yes Plan: Probably related to medications. Blood pressure has improved and normal. Discontinue IV fluids. Hold BP medications. Resume when/if needed. (3) Hyperkalemia Is this a current diagnosis for this admission?: Yes Plan: Resolved (4) History of chronic atrial fibrillation Is this a current diagnosis for this admission?: Yes Plan: Continue Pradaxa (5) CAD (coronary artery disease), [place] coronary artery Qualifiers: [place] vs. transplanted heart: [place] heart Associated angina: without angina Qualified Code(s): I25.10 - Atherosclerotic heart disease of [place] coronary artery without angina pectoris Is this a current diagnosis for this admission?: Yes (6) BPH (benign prostatic hyperplasia) Qualifiers: Lower urinary tract symptom presence: symptoms absent Qualified Code(s): N40.0 - Benign prostatic hyperplasia without lower urinary tract symptoms Is this a current diagnosis for this admission?: Yes (7) Diabetes mellitus Qualifiers: Diabetes mellitus type: type 2 Diabetes mellitus complication status: without complication Diabetes mellitus fpc insulin use: without fpc use Qualified Code(s): E11.9 - Type 2 diabetes mellitus without complications Is this a current diagnosis for this admission?: Yes (8) Leg wound, right Qualifiers: Encounter type: initial encounter Qualified Code(s): S81.801A - Unspecified open wound, right lower leg, initial encounter Is this a current diagnosis for this admission?: Yes (9) Hypoxia Is this a current diagnosis for this admission?: Yes Plan: Prior to admission, he used oxygen at home only on an as-needed basis. Continue 2 L continuous for now. (10) Chronic respiratory failure Qualifiers: Respiratory failure complication: hypoxia Qualified Code(s): J96.11 - Chronic respiratory failure with hypoxia Is this a current diagnosis for this admission?: Yes Plan: continue Oxygen. (11) Obesity Qualifiers: Obesity type: unspecified obesity type Obesity classification: adult class 3 (BMI >= 40) Body mass index: BMI 40.0-44.9 Is this a current diagnosis for this admission?: Yes Plan: He needs bariatric-rated DME, and add'l nursing support for transfers/turning. His weight plus deconditioning limits his ability to live independently. He feels that his cannot care for him at home. He agreed to rehab before returning home. - Time Time Spent with patient: 15-24 minutes Medications reviewed and adjusted accordingly: Yes Anticipated discharge: SNF - Inpatient Certification Based on my medical assessment, after consideration of the patient's comorbidities, presenting symptoms, or acuity I expect that the services needed warrant INPATIENT care.: Yes I certify that my determination is in accordance with my understanding of Medicare's requirements for reasonable and necessary INPATIENT services [42 CFR 412.3e].: Yes Medical Necessity: Significant Comorbidiites Make Outpatient Treatment Too Risky , Need Close Monitoring Due to Risk of Patient Decompensation
[2017-05-29] MEDS: ATORVASTATIN CALCIUM 40 MG TABLET PO SCH (21:30)
[2017-05-30] MEDS: BENZOCAINE/MENTHOL SORE THROAT LOZENGE BUCCAL PRN ×2 (00:26→06:36)
[2017-05-30] MEDS: METFORMIN HCL 500 MG TABLET PO SCH ×2 (08:34→16:47)
[2017-05-30] MEDS: MULTIVITAMIN TABLET PO SCH (08:35)
[2017-05-30] MEDS: ASPIRIN 81 MG TABLET, CHEWABLE PO SCH (08:35)
[2017-05-30] MEDS: FINASTERIDE 5 MG TABLET PO SCH (08:35)
[2017-05-30] MEDS: METOPROLOL SUCCINATE 25 MG TAB.SR.24H PO SCH (08:35)
[2017-05-30] MEDS: TAMSULOSIN HCL 0.4 MG CAP.SR.24H PO SCH ×2 (08:35→16:47)
[2017-05-30] MEDS: POLYETHYLENE GLYCOL 3350 POWDER 17 GM/1 PACKET PO SCH (08:36)
[2017-05-30] MEDS: FLUTICASONE NASAL SPRAY 50 MCG/SPRY 120 SPRAY/16 GM NASL SCH (08:37)
[2017-05-30] MEDS: DABIGATRAN ETEXILATE 150 MG CAPSULE PO SCH ×2 (08:37→21:03)
--- NOTE | 2017-05-30 14:07 | PDOC PROGRESS REPORT ---
Subjective Progress Note for:: 05/30/17 Subjective:: Patient is seen on morning rounds. He is sitting in the bedside chair. He is presently off oxygen. He denies any shortness of breath, cough or dyspnea. He denies any chest pain, palpitations or dizziness. He denies any nausea, vomiting, or abdominal pain. He states lower extremities are somewhat painful due to edema. He states this is improved greatly since admission. Right lower extremity remains dressed with visible serous drainage.Remaining review of systems is negative. Physical Exam Vital Signs: Temp Pulse Resp BP Pulse Ox 98.8 F 74 20 108/49 L 96 05/30/17 11:37 05/30/17 11:37 05/30/17 11:37 05/30/17 11:37 05/30/17 11:37 Intake & Output 05/29/17 05/30/17 05/31/17 06:59 06:59 06:59 Intake Total 1915 1628 267 Output Total 825 0 Balance 1090 1628 267 Weight 132.4 kg 132.4 kg General appearance: PRESENT: no acute distress, morbidly obese, well-developed, well-nourished Head exam: PRESENT: atraumatic, normocephalic Eye exam: PRESENT: conjunctiva pink, EOMI, PERRLA. ABSENT: scleral icterus Ear exam: PRESENT: normal external ear exam Mouth exam: PRESENT: moist, tongue midline Neck exam: ABSENT: carotid bruit, JVD, lymphadenopathy, thyromegaly Respiratory exam: PRESENT: clear to auscultation pam, decreased breath sounds, symmetrical, unlabored. ABSENT: rales, rhonchi, wheezes Cardiovascular exam: PRESENT: RRR, systolic murmur - 2/6. ABSENT: diastolic murmur, rubs Pulses: PRESENT: normal carotid pulses, normal radial pulses Vascular exam: PRESENT: pallor GI/Abdominal exam: PRESENT: normal bowel sounds, soft. ABSENT: distended, guarding, mass, organolmegaly, rebound, tenderness Rectal exam: PRESENT: deferred Extremities exam: PRESENT: full ROM, +2 edema, other - Bilateral lower extremities with marked chronic venous congestion skin changes. Right lower extremity remains with gauze dressing with large amount of visible serous drainage per Neurological exam: PRESENT: alert, awake, oriented to person, oriented to place , oriented to time, oriented to situation, CN II-XII grossly intact. ABSENT: motor sensory deficit Psychiatric exam: PRESENT: appropriate affect, normal mood. ABSENT: homicidal ideation, suicidal ideation Skin exam: PRESENT: dry, erythema - Right lower extremity has multiple areas of blistered areas that are weeping, skin tears, warm Results Impressions: Chest X-Ray 05/26/17 15:02 IMPRESSION: Borderline cardiomegaly without CHF. Renal Ultrasound 05/26/17 17:40 IMPRESSION: Dilated right collecting system. Similar findings were present on a CT done in November of 2013. This may be chronic for this patient. Assessment & Plan - Diagnosis (1) ARF (acute renal failure) Qualifiers: Acute renal failure type: with acute tubular necrosis Qualified Code(s): N17.0 - Acute kidney failure with tubular necrosis Is this a current diagnosis for this admission?: Yes (2) BPH (benign prostatic hyperplasia) Qualifiers: Lower urinary tract symptom presence: symptoms absent Qualified Code(s): N40.0 - Benign prostatic hyperplasia without lower urinary tract symptoms Is this a current diagnosis for this admission?: Yes (3) CAD (coronary artery disease), [place] coronary artery Qualifiers: [place] vs. transplanted heart: [place] heart Associated angina: without angina Qualified Code(s): I25.10 - Atherosclerotic heart disease of [place] coronary artery without angina pectoris Is this a current diagnosis for this admission?: Yes (4) Chronic respiratory failure Qualifiers: Respiratory failure complication: hypoxia Qualified Code(s): J96.11 - Chronic respiratory failure with hypoxia Is this a current diagnosis for this admission?: Yes (5) Diabetes mellitus Qualifiers: Diabetes mellitus type: type 2 Diabetes mellitus complication status: without complication Diabetes mellitus intermission coordinator insulin use: without intermission coordinator use Qualified Code(s): E11.9 - Type 2 diabetes mellitus without complications Is this a current diagnosis for this admission?: Yes (6) History of chronic atrial fibrillation Is this a current diagnosis for this admission?: Yes (7) Hyperkalemia Is this a current diagnosis for this admission?: Yes (8) Hypotension Qualifiers: Hypotension type: unspecified hypotension type Qualified Code(s): I95.9 - Hypotension, unspecified Is this a current diagnosis for this admission?: Yes (9) Leg wound, right Qualifiers: Encounter type: initial encounter Qualified Code(s): S81.801A - Unspecified open wound, right lower leg, initial encounter Is this a current diagnosis for this admission?: Yes (10) Obesity Qualifiers: Obesity type: unspecified obesity type Obesity classification: adult class 3 (BMI >= 40) Body mass index: BMI 40.0-44.9 Is this a current diagnosis for this admission?: Yes - Inpatient Certification Based on my medical assessment, after consideration of the patient's comorbidities, presenting symptoms, or acuity I expect that the services needed warrant INPATIENT care.: Yes I certify that my determination is in accordance with my understanding of Medicare's requirements for reasonable and necessary INPATIENT services [42 CFR 412.3e].: Yes
[2017-05-30] MEDS: ACETAMINOPHEN 325 MG TABLET PO PRN (19:39)
[2017-05-30] MEDS: ATORVASTATIN CALCIUM 40 MG TABLET PO SCH (21:03)
[2017-05-31] MEDS: ACETAMINOPHEN 325 MG TABLET PO PRN ×3 (04:52→15:49)
[2017-05-31 05:54] LABS: ABSOLUTE BASOPHILS # (AUTO) 0.1 10^3/uL (0.0-0.2); ABSOLUTE EOSINOPHILS # (AUTO) 0.2 10^3/uL (0.0-0.6); ABSOLUTE LYMPHOCYTES (AUTO) 1.8 10^3/uL (0.5-4.7); ABSOLUTE MONOCYTES (AUTO) 0.7 10^3/uL (0.1-1.4); ABSOLUTE NEUT (AUTO) 5.3 10^3/uL (1.7-8.2); BASOPHILS % (AUTO) 0.9 % (0-2); EOSINOPHILS % (AUTO) 2.6 % (0-6); HEMATOCRIT 28.7 % (37.9-51.0); HEMOGLOBIN 9.9 g/dL (13.5-17.0); LYMPHOCYTES % (AUTO) 21.7 % (13-45); MEAN CORPUSCULAR HEMOGLOBIN 31.6 pg (27.0-33.4); MEAN CORPUSCULAR HGB CONC 34.6 g/dL (32.0-36.0); MEAN CORPUSCULAR VOLUME 91 fl (80-97); MONOCYTES % (AUTO) 9.2 % (3-13); RED BLOOD COUNT 3.14 10^6/uL (4.35-5.55); RED CELL DISTRIBUTION WIDTH 17.4 % (11.5-14.0); SEGMENTED NEUTROPHILS % (AUTO) 65.6 % (42-78); WHITE BLOOD COUNT 8.1 10^3/uL (4.0-10.5)
[2017-05-31 06:17] LABS: ANION GAP 9 (5-19); BLOOD UREA NITROGEN 24 mg/dL (7-20); CALCIUM 9.3 mg/dL (8.4-10.2); CARBON DIOXIDE 26 mmol/L (22-30); CHLORIDE 103 mmol/L (98-107); CREATININE RESULT 0.99 mg/dL (0.52-1.25); GLUCOSE 95 mg/dL (75-110); POTASSIUM 4.6 mmol/L (3.6-5.0); SODIUM 137.6 mmol/L (137-145)
[2017-05-31] MEDS: POLYETHYLENE GLYCOL 3350 POWDER 17 GM/1 PACKET PO SCH (08:29)
[2017-05-31] MEDS: METFORMIN HCL 500 MG TABLET PO SCH ×2 (08:30→15:48)
[2017-05-31] MEDS: FINASTERIDE 5 MG TABLET PO SCH (08:31)
[2017-05-31] MEDS: MULTIVITAMIN TABLET PO SCH (08:31)
[2017-05-31] MEDS: TAMSULOSIN HCL 0.4 MG CAP.SR.24H PO SCH ×2 (08:31→16:40)
[2017-05-31] MEDS: METOPROLOL SUCCINATE 25 MG TAB.SR.24H PO SCH (08:31)
[2017-05-31] MEDS: ASPIRIN 81 MG TABLET, ENT COATED PO SCH (08:31)
[2017-05-31] MEDS: FLUTICASONE NASAL SPRAY 50 MCG/SPRY 120 SPRAY/16 GM NASL SCH (08:32)
[2017-05-31] MEDS: DABIGATRAN ETEXILATE 150 MG CAPSULE PO SCH ×2 (08:32→21:15)
[2017-05-31] MEDS: CETIRIZINE 10 MG TABLET PO SCH (11:14)
--- NOTE | 2017-05-31 13:53 | PDOC PROGRESS REPORT ---
Subjective Progress Note for:: 05/31/17 Subjective:: Patient is seen on morning rounds. He is sitting in the bedside chair. He is presently off oxygen. He is complaining about nasal congestion. He denies any shortness of breath, cough or dyspnea. He denies any chest pain, palpitations or dizziness. He denies any nausea, vomiting, or abdominal pain. He states lower extremities are somewhat painful due to edema. He states this is improved greatly since admission. Right lower extremity remains dressed with visible serous drainage.Remaining review of systems is negative. Physical Exam Vital Signs: Temp Pulse Resp BP Pulse Ox 97.7 F 76 20 118/53 L 97 05/31/17 11:00 05/31/17 11:00 05/31/17 11:00 05/31/17 11:00 05/31/17 11:00 Intake & Output 05/30/17 05/31/17 06/01/17 06:59 06:59 06:59 Intake Total 1628 1734 254 Output Total 0 0 Balance 1628 1734 254 Weight 132.4 kg 127 kg General appearance: PRESENT: no acute distress, morbidly obese, well-developed, well-nourished Head exam: PRESENT: atraumatic, normocephalic Eye exam: PRESENT: conjunctiva pink, EOMI, PERRLA. ABSENT: scleral icterus Ear exam: PRESENT: normal external ear exam Mouth exam: PRESENT: moist, tongue midline Neck exam: ABSENT: carotid bruit, JVD, lymphadenopathy, thyromegaly Respiratory exam: PRESENT: clear to auscultation pam, symmetrical, unlabored. ABSENT: rales, rhonchi, wheezes Cardiovascular exam: PRESENT: RRR. ABSENT: diastolic murmur, rubs, systolic murmur Pulses: PRESENT: normal carotid pulses, normal radial pulses Vascular exam: PRESENT: normal capillary refill GI/Abdominal exam: PRESENT: normal bowel sounds, soft. ABSENT: distended, guarding, mass, organolmegaly, rebound, tenderness Rectal exam: PRESENT: deferred Extremities exam: PRESENT: +2 edema, other - Chronic venous insufficiency skin changes over lower extremities to knees, right leg with opened, draining blisters Musculoskeletal exam: PRESENT: ambulatory, full ROM Neurological exam: PRESENT: alert, awake, oriented to person, oriented to place , oriented to time, oriented to situation, CN II-XII grossly intact. ABSENT: motor sensory deficit Psychiatric exam: PRESENT: appropriate affect, normal mood. ABSENT: homicidal ideation, suicidal ideation Skin exam: PRESENT: dry, intact, warm. ABSENT: cyanosis, rash Results Laboratory Results: 05/31/17 04:56 05/31/17 04:56 05/31/17 05/31/17 04:56 04:56 WBC 8.1 RBC 3.14 L Hgb 9.9 L Hct 28.7 L MCV 91 MCH 31.6 MCHC 34.6 RDW 17.4 H Plt Count 334 Seg Neutrophils % 65.6 Lymphocytes % 21.7 Monocytes % 9.2 Eosinophils % 2.6 Basophils % 0.9 Absolute Neutrophils 5.3 Absolute Lymphocytes 1.8 Absolute Monocytes 0.7 Absolute Eosinophils 0.2 Absolute Basophils 0.1 Sodium 137.6 Potassium 4.6 Chloride 103 Carbon Dioxide 26 Anion Gap 9 BUN 24 H Creatinine 0.99 Est GFR ( Amer) > 60 Est GFR (Non-Af Amer) > 60 Glucose 95 Calcium 9.3 Impressions: Chest X-Ray 05/26/17 15:02 IMPRESSION: Borderline cardiomegaly without CHF. Renal Ultrasound 05/26/17 17:40 IMPRESSION: Dilated right collecting system. Similar findings were present on a CT done in November of 2013. This may be chronic for this patient. Assessment & Plan - Diagnosis (1) ARF (acute renal failure) Qualifiers: Acute renal failure type: with acute tubular necrosis Qualified Code(s): N17.0 - Acute kidney failure with tubular necrosis Is this a current diagnosis for this admission?: Yes Plan: Resolved (2) BPH (benign prostatic hyperplasia) Qualifiers: Lower urinary tract symptom presence: symptoms absent Qualified Code(s): N40.0 - Benign prostatic hyperplasia without lower urinary tract symptoms Is this a current diagnosis for this admission?: Yes (3) CAD (coronary artery disease), [place] coronary artery Qualifiers: [place] vs. transplanted heart: [place] heart Associated angina: without angina Qualified Code(s): I25.10 - Atherosclerotic heart disease of [place] coronary artery without angina pectoris Is this a current diagnosis for this admission?: Yes (4) Chronic respiratory failure Qualifiers: Respiratory failure complication: hypoxia Qualified Code(s): J96.11 - Chronic respiratory failure with hypoxia Is this a current diagnosis for this admission?: Yes (5) Diabetes mellitus Qualifiers: Diabetes mellitus type: type 2 Diabetes mellitus complication status: without complication Diabetes mellitus senior care insulin use: without senior care use Qualified Code(s): E11.9 - Type 2 diabetes mellitus without complications Is this a current diagnosis for this admission?: Yes (6) History of chronic atrial fibrillation Is this a current diagnosis for this admission?: Yes (7) Hyperkalemia Is this a current diagnosis for this admission?: Yes Plan: Resolved (8) Hypotension Qualifiers: Hypotension type: unspecified hypotension type Qualified Code(s): I95.9 - Hypotension, unspecified Is this a current diagnosis for this admission?: Yes Plan: Resolved (9) Leg wound, right Qualifiers: Encounter type: initial encounter Qualified Code(s): S81.801A - Unspecified open wound, right lower leg, initial encounter Is this a current diagnosis for this admission?: Yes (10) Obesity Qualifiers: Obesity type: unspecified obesity type Obesity classification: adult class 3 (BMI >= 40) Body mass index: BMI 40.0-44.9 Is this a current diagnosis for this admission?: Yes - Time Time Spent with patient: 25-34 minutes Critical Time spent with patient: 15-24 minutes Medications reviewed and adjusted accordingly: Yes Anticipated discharge: Acute Rehab Within: when bed available
[2017-05-31] MEDS: ATORVASTATIN CALCIUM 40 MG TABLET PO SCH (21:15)
[2017-05-31] MEDS ORDERED: CALCIUM CARBONATE 500 MG TAB.CHEW PO PRN (22:59)
[2017-06-01] MEDS: ACETAMINOPHEN 325 MG TABLET PO PRN (00:29)
[2017-06-01] MEDS: METFORMIN HCL 500 MG TABLET PO SCH (07:01)
[2017-06-01] MEDS: POLYETHYLENE GLYCOL 3350 POWDER 17 GM/1 PACKET PO SCH (09:22)
[2017-06-01] MEDS: FLUTICASONE NASAL SPRAY 50 MCG/SPRY 120 SPRAY/16 GM NASL SCH (09:22)
[2017-06-01] MEDS: TAMSULOSIN HCL 0.4 MG CAP.SR.24H PO SCH (09:23)
[2017-06-01] MEDS: METOPROLOL SUCCINATE 25 MG TAB.SR.24H PO SCH (09:23)
[2017-06-01] MEDS: ASPIRIN 81 MG TABLET, ENT COATED PO SCH (09:23)
[2017-06-01] MEDS: FINASTERIDE 5 MG TABLET PO SCH (09:23)
[2017-06-01] MEDS: CETIRIZINE 10 MG TABLET PO SCH (09:23)
[2017-06-01] MEDS: DABIGATRAN ETEXILATE 150 MG CAPSULE PO SCH (09:24)
[2017-06-01] MEDS: MULTIVITAMIN TABLET PO SCH (09:24)
[2017-06-01] MEDS ORDERED: LACTOBACILLUS ACIDOPHILUS 250 MG TAB PO SCH (10:00)
[2017-06-01 12:37] VITALS: BP 104/50
--- NOTE | 2017-06-01 13:27 | PDOC TRANSFER SUMMARY ---
General - Admit/Disc Date/PCP Admission Date/Primary Care Provider: 05/27/17 13:35 Discharge Date: 06/01/17 - Discharge Diagnosis (1) ARF (acute renal failure) Is this a current diagnosis for this admission?: Yes Summary: Resolved (2) BPH (benign prostatic hyperplasia) Is this a current diagnosis for this admission?: Yes Summary: Continue Flomax (3) CAD (coronary artery disease), [place] coronary artery Is this a current diagnosis for this admission?: Yes Summary: Continue current medication (4) Chronic respiratory failure Is this a current diagnosis for this admission?: Yes Summary: Resolved (5) Diabetes mellitus Is this a current diagnosis for this admission?: Yes Summary: Continue Current medications and sliding scale coverage (6) History of chronic atrial fibrillation Is this a current diagnosis for this admission?: Yes Summary: Controlled rate on metoprolol and pradaxa (7) Hyperkalemia Is this a current diagnosis for this admission?: Yes Summary: Resolved (8) Hypotension Is this a current diagnosis for this admission?: Yes Summary: resolved (9) Leg wound, right Is this a current diagnosis for this admission?: Yes Summary: Patient with severe bilateral chronic venous insufficiency right leg had blistered area sutured open and draining. Patient has been seen by the product test specialist as well. Arterial brachial indexes were normal. Venous to duplex shows chronic venous insufficiency continue dressing changes and Silvadene cream as directed. (10) Obesity Is this a current diagnosis for this admission?: Yes - Additional Information Resuscitation Status: Full Code Discharge Diet: Cardiac, Diabetic Discharge Activity: Activity As Tolerated, Balance Activity w/Rest Home Medications: Acetaminophen [Tylenol Extra Strength 500 mg Tablet] 1 tab PO BIDP PRN 05/26/17 Aspirin [Aspirin EC] 81 mg PO DAILY 05/26/17 Atorvastatin Calcium [Lipitor 40 mg Tablet] 40 mg PO QHS 05/26/17 Candesartan Cilexetil [Atacand] 4 mg PO DAILY 05/26/17 Dabigatran Etexilate Mesylate [Pradaxa 150 mg Capsule] 150 mg PO Q12 05/26/17 Finasteride [Proscar 5 mg Tablet] 5 mg PO DAILY 05/26/17 Fluticasone Propionate [Flonase Nasal [place] 50 Mcg/[place] 16 gm] 1 spray NASL DAILY 05/26/17 Insulin Glargine,Hum.rec.anlog [Lantus Solostar] 25 unit SQ QHS 05/26/17 Magnesium Oxide [Mag-Ox 400 mg Tablet] 400 mg PO QHS 05/26/17 Metformin HCl [Glucophage] 1,000 mg PO BIDBS 05/26/17 Metoprolol Succinate [Toprol Xl 25 mg Tab.sr] 25 mg PO DAILY 05/26/17 Multivitamin [Tab-A-Ariel] 1 each PO DAILY 05/26/17 Nitroglycerin [Nitrostat] 0.4 mg SL Q5MP PRN 05/26/17 Potassium Chloride [K-Tab ER] 20 meq PO BID 05/26/17 Silver Sulfadiazine [Silvadene 1% Cream 400 gm] 1 applic TP BID 05/26/17 Tamsulosin HCl [Flomax 0.4 mg Cap.sr] 0.4 mg PO BID 05/26/17 Torsemide [Demadex 20 mg Tablet] 40 mg PO BID 05/26/17 Amox Tr/Potassium Clavulanate [Augmentin "500" Tablet] 1 tab PO Q8 #28 tablet 06/01/17 Atorvastatin Calcium [Lipitor 40 mg Tablet] 40 mg PO QHS tablet 06/01/17 Benzocaine/Menthol [Chloraseptic Sore Throat Lozenge] 1 each BUCCAL Q6HP PRN lozenge 06/01/17 Calcium Carbonate [Tums Chewable 500 mg Tab.chew] 500 mg PO Q8HP PRN tab.chew 06/01/17 Cetirizine HCl [Zyrtec 10 mg Tablet] 10 mg PO DAILY tablet 06/01/17 Dabigatran Etexilate Mesylate [Pradaxa 150 mg Capsule] 150 mg PO Q12 capsule Finasteride [Proscar 5 mg Tablet] 5 mg PO DAILY tablet 06/01/17 Insulin Lispro [Humalog Insulin (Lispro) 100 unit/mL] 0 - 12 unit SUBCUT [id number] PRN unit 06/01/17 Multivitamin [Tab-A-Ariel (Multiple Vitamin) Tablet] 1 tab PO DAILY tablet 06/01 Nitroglycerin [Nitrostat 0.4 mg (1/150 Gr) Tabs 25/Bottle] 1 tab SL Q5MP PRN bottle 06/01/17 Polyethylene Glycol 3350 [Miralax Powder 17 gm/Packet] 17 gm PO DAILY powd.pack 06/01/17 History of Present Illness Admission Date/PCP: 05/27/17 13:35 Patient complains of: Leg gave out History of Present Illness: GUME SUGGS is a 76 year old male with multiple medical problems presented to the emergency department after experiencing profound weakness today. He has chronic lower extremity edema. As result, he has skin discoloration on both lower legs as well as ulcerations on his right calf. At his wound clinic appointment today, but was unable to get out of the truck because he was so weak. He did not report dizziness. He did not lose consciousness. He stated that his legs just felt weak. He does not report any change in medications. His appetite has been good. He did not report fevers, chills, nausea, or vomiting. He has not been short of breath. He has not had chest pain. Hospital Course Hospital Course: Patient was admitted to the hospitalist service on IMCU on telemetry. He had recently been seen by the wound care center, Dr. Soto. 4 chronic venous insufficiency in both lower extremities. He has a Barcenas catheter placed for urinary obstruction. He underwent renal ultrasound which showed no stenosis he was gently rehydrated with IV fluids. His acute renal failure resolved over the next 3 days. On hospital day 3 he developed a sore throat, followed by a nasal congestion and productive cough. Over the last 2 days the symptoms have worsened. Now running low-grade fever of 99.4. He was started on Augmentin and lactobacillus today. He is continued to have twice daily dressing changes to the right lower extremity from serous drainage from open blisters. Silvadene cream is applied twice daily. Physical Exam Vital Signs: Temp Pulse Resp BP Pulse Ox 98.0 F 73 18 104/50 L 97 06/01/17 11:28 06/01/17 11:28 06/01/17 11:28 06/01/17 11:28 06/01/17 11:28 Intake & Output 05/31/17 06/01/17 06/02/17 06:59 06:59 06:59 Intake Total 1734 1009 444 Output Total 0 Balance 1734 1009 444 Weight 127 kg 127 kg General appearance: PRESENT: no acute distress, morbidly obese, well-developed, well-nourished Head exam: PRESENT: atraumatic, normocephalic Eye exam: PRESENT: conjunctiva pink, EOMI, PERRLA. ABSENT: scleral icterus Ear exam: PRESENT: bleeding Mouth exam: PRESENT: moist, tongue midline Neck exam: ABSENT: carotid bruit, JVD, lymphadenopathy, thyromegaly Respiratory exam: PRESENT: clear to auscultation pam, symmetrical, unlabored Cardiovascular exam: PRESENT: RRR. ABSENT: diastolic murmur, rubs, systolic murmur Pulses: PRESENT: normal carotid pulses, normal radial pulses Vascular exam: PRESENT: normal capillary refill GI/Abdominal exam: PRESENT: normal bowel sounds, soft. ABSENT: distended, guarding, mass, organolmegaly, rebound, tenderness Rectal exam: PRESENT: deferred Extremities exam: PRESENT: full ROM, +2 edema Musculoskeletal exam: PRESENT: ambulatory, other - Chronic Venous insufficiency changes over the lower extremities. Right leg with dressing intact. He has 2 blistered areas that are open and draining serous fluid. His leg is doing. Improved. Neurological exam: PRESENT: alert, awake, oriented to person, oriented to place , oriented to time, oriented to situation, CN II-XII grossly intact. ABSENT: motor sensory deficit Psychiatric exam: PRESENT: appropriate affect, normal mood. ABSENT: homicidal ideation, suicidal ideation Skin exam: PRESENT: erythema - bilateral lower extremities, vesicles, warm, other Results Laboratory Results: 05/31/17 04:56 05/31/17 04:56 Impressions: Chest X-Ray 05/26/17 15:02 IMPRESSION: Borderline cardiomegaly without CHF. Renal Ultrasound 05/26/17 17:40 IMPRESSION: Dilated right collecting system. Similar findings were present on a CT done in November of 2013. This may be chronic for this patient. Transfer Plan - Disposition Transfer Plan: [facility] - Time Spent with Patient Time spent with patient: Less than 30 Minutes Qualifiers P[place]INT BEING DISCHARGED WITH ANY OF THE FOLLOWING DIAGNOSIS?: No
[2017-06-01] MEDS ORDERED: AMOXICILLIN TR/POT CLAVULANATE 500-125 MG TAB PO SCH (14:00)
== END 2017-06-01 16:04 | DRG 683 ==
LOC: ER 14:13 → UNDOADMIN 18:21 → EH 18:21 → INTOOBSV 18:28 → 3S 20:30 → OBSVTOIN 05-27 13:35
PROVIDERS: ADMIT Internal Medicine; ATTEND Internal Medicine
DX: N17.0 Acute kidney failure with tubular necrosis (principal); L97.211 Non-pressure chronic ulcer of right calf limited to breakdown of skin; J96.11 Chronic respiratory failure with hypoxia; Z68.41 Body mass index [BMI] 40.0-44.9, adult; E11.622 Type 2 diabetes mellitus with other skin ulcer; N40.0 Benign prostatic hyperplasia without lower urinary tract symptoms; I25.10 Atherosclerotic heart disease of native coronary artery without angina pectoris; E87.5 Hyperkalemia; I10 Essential (primary) hypertension; E66.9 Obesity, unspecified; I87.2 Venous insufficiency (chronic) (peripheral); I95.9 Hypotension, unspecified; I48.2 Chronic atrial fibrillation; E86.0 Dehydration; M19.90 Unspecified osteoarthritis, unspecified site; N28.89 Other specified disorders of kidney and ureter; Z79.4 Long term (current) use of insulin; Z79.84 Long term (current) use of oral hypoglycemic drugs; Z99.81 Dependence on supplemental oxygen; Z79.899 Other long term (current) drug therapy; Z79.82 Long term (current) use of aspirin; Z95.5 Presence of coronary angioplasty implant and graft; Z82.3 Family history of stroke; Z82.49 Family history of ischemic heart disease and other diseases of the circulatory system; Z83.3 Family history of diabetes mellitus; J02.9 Acute pharyngitis, unspecified; R05 Cough
CPT/HCPCS: 36415; 51702; 71010; 76770; 80048; 80053; 81001; 82550; 82553; 82803; 82962; 83605; 84484; 85025; 85027; 85610; 87040; 87086; 89055; 93005; 93010; 96374; 99212; 99291; 99292; G0378; G8978-GP; G8979-GP; J1815; J3490; J7030

== ENCOUNTER → 2018-12-27 | Outpatient (CLI) | payer MEDICARE, OTHER ==
[2018-12-27 10:55] LABS: ABSOLUTE EOSINOPHILS # (AUTO) 0.2 10^3/uL (0.0-0.6); ABSOLUTE LYMPHOCYTES (AUTO) 1.5 10^3/uL (0.5-4.7); ABSOLUTE MONOCYTES (AUTO) 0.6 10^3/uL (0.1-1.4); BASOPHILS % (AUTO) 0.5 % (0-2); EOSINOPHILS % (AUTO) 2.1 % (0-6); HEMATOCRIT 37.1 % (37.9-51.0); HEMOGLOBIN 12.5 g/dL (13.5-17.0); LYMPHOCYTES % (AUTO) 20.9 % (13-45); MEAN CORPUSCULAR HGB CONC 33.6 g/dL (32.0-36.0); MEAN CORPUSCULAR VOLUME 92 fl (80-97); MONOCYTES % (AUTO) 7.6 % (3-13); PLATELET COUNT 246 10^3/uL (150-450); RED BLOOD COUNT 4.03 10^6/uL (4.35-5.55); RED CELL DISTRIBUTION WIDTH 16.2 % (11.5-14.0); SEGMENTED NEUTROPHILS % (AUTO) 68.9 % (42-78); TOTAL CELLS COUNTED % (AUTO) 100 %; WHITE BLOOD COUNT 7.2 10^3/uL (4.0-10.5)
[2018-12-27 11:15] LABS: ALANINE AMINOTRANSFERASE 32 U/L (21-72); ALBUMIN 3.9 g/dL (3.5-5.0); ALKALINE PHOSPHATASE 118 U/L (38-126); ANION GAP 10 (5-19); ASPARTATE AMINO TRANSFERASE 23 U/L (17-59); BILIRUBIN,DIRECT 0.3 mg/dL (0.0-0.4); BILIRUBIN,TOTAL 0.6 mg/dL (0.2-1.3); BLOOD UREA NITROGEN 15 mg/dL (7-20); C-REACTIVE PROTEIN 6.7 mg/L (<10.0); CALCIUM 9.6 mg/dL (8.4-10.2); CARBON DIOXIDE 31 mmol/L (22-30); CHLORIDE 99 mmol/L (98-107); GLUCOSE 161 mg/dL (75-110); POTASSIUM 4.2 mmol/L (3.6-5.0); SODIUM 140.4 mmol/L (137-145); TOTAL PROTEIN 8.5 g/dL (6.3-8.2)
[2018-12-27 11:36] LABS: ERYTHROCYTE SEDIMENTATION RATE 88 mm/hr (0-20)
--- NOTE | 2018-12-28 11:24 | XCELERA REPORT ---
[address] [address] Lower Extremity Arterial Evaluation Name: GUME SUGGS Age: 78 yrs Gender: Male : 1940 Patient Status: Outpatient Patient Location: Study Date: 12/27/2018 09:21 AM Procedure: A color flow and duplex scan of the lower extremity arteries was performed bilaterally with velocity and waveform anaylsis. 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 Biphasic with very low velocity in the Dorsalis Pedis arteries. Posterior and Anterior Tibial tibial not seen due to presence of bandaging. Ankle Brachial index not obtained due to bandaging and really severe pitting edema. Left Side Arterial Evaluation Normal velocity and triphasic waveforms noted from the Common Femoral artery to the Anterior tibial. . Biphasic with normal velocity in the Posterior tibial artery. Ankle Brachial index not obtained due to edema. Interpretation Summary Mild hemodynamically significant lesions in the left lower extremity only, on duplex imaging, at rest. On the right significant disease is suggested, from findings in the Dorsalis Pedis. The study is incomplete, due to body habitus and edema and the presence of bandaging. Clinical correlation is advised, going to angiogram or CT/MR A may be needed if significant question about vascularity remain. : MARITZA REDD > Chong Soto
== END ==
LOC: SP 08:51
PROVIDERS: ATTEND Nurse Practitioner Family
DX: E11.621 Type 2 diabetes mellitus with foot ulcer (principal); L97.212 Non-pressure chronic ulcer of right calf with fat layer exposed
CPT/HCPCS: 36415; 80053; 83036; 85025; 85652; 86140; 93925

== ENCOUNTER 2019-02-10 10:07 | Emergency (ER) | payer MEDICARE, OTHER ==
--- NOTE | 2019-02-10 10:42 | ER Document Report ---
ED Medical Screen (RME) - General Chief Complaint: Shortness Of Breath Stated Complaint: WOUND CHECK Time Seen by Provider: 02/10/19 10:36 Primary Care Provider: RENARD MANUEL MD [Primary Care Provider] - Follow up as needed TRAVEL OUTSIDE OF THE [place] IN LAST 30 DAYS: No - HPI Notes: 02/10/19 10:40 Patient is a 78-year-old male with a history of insulin-dependent diabetes, CHF, hypertension, obesity who presents complaining of increased shortness of breath over the past day primarily with exertion. He has not noticed any more swelling than normal. Patient states that he is usually on 4 L of oxygen via nasal cannula at home. He denies drug allergies. He is eating and drinking without difficulty. He is urinating normally. No history of COPD. Denies HYATT, fever, n arleen pain, URI, CP, Abd pain, dysuria, back pain, or rash. I have treated and performed a rapid initial assessment of this patient. A comprehensive ED assessment and evaluation of the patient, analysis of test results and completion of medical decision making process will be conducted by additional ED providers. PHYSICAL EXAMINATION: GENERAL: Well-appearing, well-nourished and in no acute distress. A&Ox4. Answers questions appropriately. LUNGS: diminished bilaterally. No retractions. HEART: Regular rate and rhythm without murmurs, rubs, gallops. Extremities: 3+ pitting edema bilateral lower extremities PSYCH: Normal mood, normal affect. - Related Data Allergies/Adverse Reactions: No Known Allergies Allergy (Verified 02/10/19 10:27) Past Medical History - Social History Frequency of alcohol use: None Drug Abuse: None - Past Medical History Cardiac Medical History: Reports: Hx Atrial Fibrillation, Hx Congestive Heart Failure, Hx Coronary Artery Disease, Hx Hypercholesterolemia, Hx Hypertension Denies: Hx Heart Attack Pulmonary Medical History: Reports: Hx COPD, Hx Sleep Apnea Denies: Hx Asthma, Hx Tuberculosis Neurological Medical History: Denies: Hx Cerebrovascular Accident, Hx Seizures Endocrine Medical History: Reports: Hx Diabetes Mellitus Type 1, Hx Diabetes Mellitus Type 2 Renal/ Medical History: Denies: Hx Peritoneal Dialysis GI Medical History: Denies: Hx Hepatitis, Hx Hiatal Hernia, Hx Ulcer Musculoskeltal Medical History: Reports Hx Arthritis Psychiatric Medical History: Denies: Hx Depression Infectious Medical History: Denies: Hx Hepatitis Past Surgical History: Reports: Hx Cardiac Catheterization, Hx Cardiac Surgery - stents, Hx Coronary Stent. Denies: Hx Open Heart Surgery, Hx Pacemaker - Immunizations Immunizations up to date: Yes Hx Diphtheria, Pertussis, Tetanus Vaccination: Yes Physical Exam - Vital signs Vitals: Temp Pulse Resp BP Pulse Ox 97.5 F 115 H 20 109/70 94 02/10/19 10:36 02/10/19 10:36 02/10/19 10:36 02/10/19 10:36 02/10/19 10:36 Course - Vital Signs Vital signs: Temp Pulse Resp BP Pulse Ox 97.5 F 115 H 20 109/70 94 02/10/19 10:36 02/10/19 10:36 02/10/19 10:36 02/10/19 10:36 02/10/19 10:36 Doctor's Discharge - Discharge Referrals: RENARD MANUEL MD [Primary Care Provider] - Follow up as needed
[2019-02-10 11:24] LABS: ABSOLUTE EOSINOPHILS # (AUTO) 0.1 10^3/uL (0.0-0.6); ABSOLUTE LYMPHOCYTES (AUTO) 0.9 10^3/uL (0.5-4.7); ABSOLUTE MONOCYTES (AUTO) 0.4 10^3/uL (0.1-1.4); ABSOLUTE NEUT (AUTO) 3.9 10^3/uL (1.7-8.2); BASOPHILS % (AUTO) 0.3 % (0-2); EOSINOPHILS % (AUTO) 1.4 % (0-6); HEMATOCRIT 34.7 % (37.9-51.0); HEMOGLOBIN 11.5 g/dL (13.5-17.0); LYMPHOCYTES % (AUTO) 17.2 % (13-45); MEAN CORPUSCULAR HEMOGLOBIN 30.6 pg (27.0-33.4); MEAN CORPUSCULAR HGB CONC 33.1 g/dL (32.0-36.0); MEAN CORPUSCULAR VOLUME 93 fl (80-97); PLATELET COUNT 184 10^3/uL (150-450); RED BLOOD COUNT 3.74 10^6/uL (4.35-5.55); SEGMENTED NEUTROPHILS % (AUTO) 73.1 % (42-78); TOTAL CELLS COUNTED % (AUTO) 100 %; WHITE BLOOD COUNT 5.3 10^3/uL (4.0-10.5)
[2019-02-10 11:44] LABS: ALANINE AMINOTRANSFERASE 25 U/L (21-72); ALBUMIN 4.1 g/dL (3.5-5.0); ALKALINE PHOSPHATASE 107 U/L (38-126); ANION GAP 7 (5-19); ASPARTATE AMINO TRANSFERASE 35 U/L (17-59); BILIRUBIN,DIRECT 0.3 mg/dL (0.0-0.4); BILIRUBIN,TOTAL 0.7 mg/dL (0.2-1.3); BLOOD UREA NITROGEN 13 mg/dL (7-20); CALCIUM 9.4 mg/dL (8.4-10.2); CARBON DIOXIDE 35 mmol/L (22-30); CHLORIDE 100 mmol/L (98-107); GLUCOSE 107 mg/dL (75-110); POTASSIUM 4.7 mmol/L (3.6-5.0); SODIUM 142.4 mmol/L (137-145)
--- NOTE | 2019-02-10 11:50 | RADIOLOGY REPORT (SQ) ---
EXAM DESCRIPTION: CHEST SINGLE VIEW COMPLETED DATE/TIME: 02/10/2019 11:37 am REASON FOR STUDY: sob COMPARISON: 12/01/2013 EXAM PARAMETERS: NUMBER OF VIEWS: One view. TECHNIQUE: Single frontal radiographic view of the chest acquired. RADIATION DOSE: NA LIMITATIONS: None. FINDINGS: LUNGS AND PLEURA: No opacities, masses or pneumothorax. No pleural effusion. MEDIASTINUM AND HILAR STRUCTURES: No masses. Contour normal. HEART AND VASCULAR STRUCTURES: Gross cardiomegaly. BONES: No acute findings. HARDWARE: None in the chest. OTHER: No other significant finding. IMPRESSION: Unchanged gross cardiomegaly without acute abnormality of the lungs in AP projection. TECHNICAL DOCUMENTATION: JOB ID: [id number] [employer]- All Rights Reserved Reading location - IP/workstation name: [email or web address]
[2019-02-10 11:55] LABS: NT PRO BNP 625 pg/mL (<450)
[2019-02-10 12:03] LABS: TROPONIN I < 0.012 ng/mL
--- NOTE | 2019-02-10 13:23 | ER Document Report ---
ED General - General Chief Complaint: Shortness Of Breath Stated Complaint: WOUND CHECK Time Seen by Provider: 02/10/19 10:36 Primary Care Provider: RENARD MANUEL MD [Primary Care Provider] - Follow up as needed TRAVEL OUTSIDE OF THE [place] IN LAST 30 DAYS: No - HPI Notes: Patient is a 78-year-old male with an extensive medical history presents to the emergency department for evaluation of dyspnea. Is been ongoing for about a month. He states his been somewhat getting worse. He states he never lays flat, sleeps in a recliner. Any sort of exertion makes him more short of breath. He states on occasion he gets chest tightness when transferring from a chair to a wheelchair. Denies any chest tightness right now. I asked him if he is taking his medications as prescribed. He admits to me that about half of the time he does not take his Bumex. He states that it makes him urinate too much, and if he is going anywhere he does not take the medication. He states that his leg swelling is about what it normally is. He has his legs wrapped from wound care. - Related Data Allergies/Adverse Reactions: No Known Allergies Allergy (Verified 02/10/19 10:27) Past Medical History - General Information source: Patient - Social History Smoking Status: Former Smoker Frequency of alcohol use: None Drug Abuse: None Family History: Reviewed & Not Pertinent, Arthritis, CAD, CVA, DM, Hypertension Patient has suicidal ideation: No Patient has homicidal ideation: No - Past Medical History Cardiac Medical History: Reports: Hx Atrial Fibrillation, Hx Congestive Heart Failure, Hx Coronary Artery Disease, Hx Hypercholesterolemia, Hx Hypertension Denies: Hx Heart Attack Pulmonary Medical History: Reports: Hx COPD, Hx Sleep Apnea Denies: Hx Asthma, Hx Tuberculosis Neurological Medical History: Denies: Hx Cerebrovascular Accident, Hx Seizures Endocrine Medical History: Reports: Hx Diabetes Mellitus Type 2 Renal/ Medical History: Denies: Hx Peritoneal Dialysis GI Medical History: Denies: Hx Hepatitis, Hx Hiatal Hernia, Hx Ulcer Musculoskeletal Medical History: Reports Hx Arthritis Psychiatric Medical History: Denies: Hx Depression Infectious Medical History: Denies: Hx Hepatitis Past Surgical History: Reports: Hx Cardiac Catheterization, Hx Cardiac Surgery - stents, Hx Coronary Stent. Denies: Hx Open Heart Surgery, Hx Pacemaker - Immunizations Immunizations up to date: Yes Hx Diphtheria, Pertussis, Tetanus Vaccination: Yes Hx Pneumococcal Vaccination: 02/04/12 Review of Systems - Review of Systems Constitutional: No symptoms reported EENT: No symptoms reported Cardiovascular: See HPI Respiratory: See HPI Gastrointestinal: No symptoms reported Genitourinary: No symptoms reported Musculoskeletal: See HPI Skin: No symptoms reported Neurological/Psychological: No symptoms reported Physical Exam - Vital signs Vitals: Temp Pulse Resp BP Pulse Ox 97.5 F 115 H 20 109/70 94 02/10/19 10:36 02/10/19 10:36 02/10/19 10:36 02/10/19 10:36 02/10/19 10:36 - Notes Notes: 78-year-old male, appears stated age in no acute distress. Is never spiked any traumatic. Pupils are equal, round, reactive to light. Oral mucosa is moist. Neck is supple without meningismus. Heart is irregularly irregular. Lung exam is limited secondary to body habitus, but no wheezes, rales, rhonchi are noted. Abdomen is obese, nontender with normal active bowel sounds. Extremities show 3+ pitting edema to the pretibial region. No posterior calf tenderness. Skin is warm and dry. Peripheral pulses are equal. Course - Re-evaluation Re-evalutation: 02/10/19 13:20 Patient presents emergency department for evaluation. Initially his heart rate was high. He is atrial fibrillation. His heart rate ranged between the 70s to 110 here. He is stable. He is oxygenating 95 to 90% on his normal home O2. The importance of being compliant with his medication regimen was stressed to the patient. At this time his laboratory investigations were only remarkable for a mildly elevated bicarb. Is on Bumex. His creatinine is normal. His chest x-ray is unremarkable for any acute findings. Patient feels comfortable with the idea of being discharged. We will send him home to follow-up with his primary care physician and certified nutritionist this week. Return to the emergency department for worsening or new concerning symptoms of any sort. - Vital Signs Vital signs: Temp Pulse Resp BP Pulse Ox 97.5 F 115 H 20 109/70 94 02/10/19 10:36 02/10/19 10:36 02/10/19 10:36 02/10/19 10:36 02/10/19 10:36 - Laboratory Result Diagrams: 02/10/19 11:00 02/10/19 11:00 Laboratory results interpreted by me: 02/10/19 02/10/19 02/10/19 11:00 11:00 11:00 RBC 3.74 L Hgb 11.5 L Hct 34.7 L RDW 17.0 H Carbon Dioxide 35 H NT-Pro-B Natriuret Pep 625 H Total Protein 9.0 H - Diagnostic Test Radiology reviewed: Reports reviewed Radiology results interpreted by me: 02/10/19 13:23 Chest X-Ray 02/10/19 10:39 IMPRESSION: Unchanged gross cardiomegaly without acute abnormality of the lungs in AP projection. - EKG Interpretation by Me Additional EKG results interpreted by me: 02/10/19 13:23 Atrial fibrillation with a rate of 99 bpm. Normal axis. Intraventricular conduction delay. Nonspecific ST changes, but no acute changes concerning for ischemia or infarction. No significant change when compared to prior study. Discharge - Discharge Clinical Impression: History of congestive heart failure Dyspnea Qualifiers: Dyspnea type: shortness of breath Qualified Code(s): R06.02 - Shortness of breath; R06.00 - Dyspnea, unspecified; R06.01 - Orthopnea Condition: Stable Disposition: HOME, SELF-CARE Instructions: Congestive Heart Failure ([facility]) Additional Instructions: It is important that you take your medications exactly as prescribed. Follow-up with your primary care physician as well as your certified nutritionist within the week. Return to the emergency department with worsening or new concerning symptoms of any sort. Referrals: RENARD MANUEL MD [Primary Care Provider] - Follow up as needed
[2019-02-10 14:12] VITALS: BP 123/74
--- NOTE | 2019-02-10 16:18 | EKG REPORT ---
SEVERITY:- ABNORMAL ECG - ATRIAL FIBRILLATION, V-RATE 62-115 NONSPECIFIC INTRAVENTRICULAR CONDUCTION DELAY : Confirmed by: Veronica Panda MD 10-Feb-2019 16:16:37
== END 2019-02-10 14:20 | disposition home or self-care (01) ==
LOC: ER 10:07
DX: R06.02 Shortness of breath (principal); R06.01 Orthopnea; R06.00 Dyspnea, unspecified; I50.9 Heart failure, unspecified; I48.91 Unspecified atrial fibrillation; I25.10 Atherosclerotic heart disease of native coronary artery without angina pectoris; E11.9 Type 2 diabetes mellitus without complications; I11.0 Hypertensive heart disease with heart failure
CPT/HCPCS: 36415; 71045; 80053; 83880; 84484; 85025; 93005; 93010; 99285

== ENCOUNTER → 2020-07-23 | Outpatient (CLI) | payer MEDICARE, OTHER ==
--- NOTE | 2020-07-24 12:54 | RADIOLOGY REPORT (SQ) ---
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 IMPRESSION: Please see combined report for performance of procedure and radiologic supervision and i nterpretation. Reading location - IP/workstation name: [email or web address]
--- NOTE | 2020-07-24 12:54 | RADIOLOGY REPORT (SQ) ---
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 Additional selected spectral images recorded. ABIs recorded. LIMITATIONS: Body habitus. Bandage material. FINDINGS: RIGHT LEG: ABIS: Could not be obtained. INFLOW ARTERIES: Not imaged. FEMORAL ARTERIES:Multiphasic waveforms. No significant stenosis. POPLITEAL ARTERY:Multiphasic waveforms. No significant stenosis. PATENT TIBIOPERONEAL TRUNK AND 3 VESSEL RUNOFF: Proximal posterior tibial artery not visualized. Pat ent vessels more distally. TBI: Not performed. OTHER: No other significant finding. LEFT LEG: ABIS: Could not be obtained. INFLOW ARTERIES: Not imaged. FEMORAL ARTERIES:Multiphasic waveforms. No significant stenosis. POPLITEAL ARTERY:Multiphasic waveforms. Significant stenosis. PATENT TIBIOPERONEAL TRUNK AND 3 VESSEL RUNOFF: Proximal posterior tibial artery not visualized. Pat ent vessels more distally. TBI: Not performed. OTHER: No other significant finding. IMPRESSION: Technical limitations. No significant stenosis. COMMENT: [facility] NORMAL: Greater than 1.0 MINIMAL DISEASE: 0.9 to 1.0 CLAUDICATION: 0.5 to 0.9 SEVERE ARTERIAL DISEASE: Less than 0.5 [facility] NORMAL: Greater than 1.0 (1.2 If Heavy Calcifications) NORMAL TO MILD ISCHEMIA: 0.8 to 1.0 MODERATE ISCHEMIA: 0.4 to 0.8 SEVERE ISCHEMIA: Less than 0.4 TECHNICAL DOCUMENTATION: JOB ID: [id number] 2010 [employer]- All Rights Reserved Reading location - IP/workstation name: [email or web address]
== END ==
LOC: SP 13:44
PROVIDERS: ATTEND Nurse Practitioner Family
DX: L97.212 Non-pressure chronic ulcer of right calf with fat layer exposed (principal)
CPT/HCPCS: 93922; 93925